=== PATIENT | female | born 1995 | race Caucasian/White ===

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

== ENCOUNTER → 2017-01-01 | Outpatient (CLI) | payer OTHER ==
[~2017-01-01] MED LIST changes: +ESCI10TA17 PO; -FERR27TA5 PO; +HYDR25CA PO; +IBUP-1050 PO
[2017-01-01 16:53] LABS: URINE APPEARANCE CLEAR (CLEAR); URINE BILIRUBIN NEG (NEG); URINE COLOR YELLOW; URINE NITRITE NEG (NEG); URINE SPECIFIC GRAVITY 1.013 (1.000-1.030); UROBILINOGEN NEG (NEG)
[2017-01-01 16:56] LABS: MANUAL MICROSCOPIC REQUIRED? NO; REVIEW REQ? NO
== END | disposition home or self-care (01) ==
LOC: C.LABBFT 17:48
PROVIDERS: ATTEND Physician Assistant Medical
DX: R39.15 Urgency of urination (principal)

== ENCOUNTER 2017-02-19 23:27 | Emergency (ER) | payer OTHER ==
[~2017-02-19] VITALS: Ht 154.9 cm; Wt 86.6 kg
[2017-02-19 23:27] VITALS: TEMP 36.9; Ht 154.9 cm; Wt 86.6 kg
[~2017-02-19 23:27] MED LIST changes: -ESCI10TA17 PO; -HYDR25CA PO; -IBUP-1050 PO
[2017-02-19] MEDS ORDERED: IBUP-1050 PO (23:59)
[2017-02-19] MEDS ORDERED: HYDR25CA PO (23:59)
[2017-02-20 00:03] LABS: URINE APPEARANCE CLEAR (CLEAR); URINE BILIRUBIN NEG (NEG); URINE COLOR YELLOW; URINE NITRITE NEG (NEG); URINE PH 7.5 (4.5-7.5); URINE SPECIFIC GRAVITY 1.015 (1.000-1.030); UROBILINOGEN NEG (NEG); ZZUR CULT IF INDIC CLEAN CATCH NO
[2017-02-20 00:09] LABS: MANUAL MICROSCOPIC REQUIRED? NO; REVIEW REQ? NO
[2017-02-20] MEDS ORDERED: KETOROLAC TROMETHAMINE 30 MG/ML VIAL IV STA (00:10)
[2017-02-20 00:15] LABS: PREG INTERNAL NEGATIVE QC NEG CLEAR BACKGROUND; PREG INTERNAL POSITIVE QC POS CONTROL LINE
[2017-02-20] MEDS ORDERED: SODIUM CHLORIDE 0.9% 1000ML 1,000 ML IV ONE (00:15)
[2017-02-20 00:28] LABS: BASO % 0.4 %; BASO ABS # 0.03 K/uL (0-0.2); COMPLETE YES; HEMATOCRIT 37.3 % (37-47); IG% 0.4 %; LYMPH % 30.3 %; LYMPH ABS # 2.25 K/uL (1.2-3.4); MEAN CORPUSCULAR HGB CONC 33.8 g/dl (32-36); MEAN PLATELET VOLUME 11.2 fL (7.4-10.4); MONO % 7.8 %; NEUT % 54.1 %; PLATELET COUNT 237 K/uL (130-400); RED BLOOD COUNT 4.66 M/uL (4.2-5.4); WHITE BLOOD COUNT 7.43 K/uL (4.8-10.8)
[2017-02-20] MEDS ORDERED: OPTIRAY 320 IV PRN (00:30)
[2017-02-20 00:46] LABS: CALCIUM 9.1 mg/dl (8.5-10.1); CREATININE 0.72 mg/dl (0.60-1.20)
[2017-02-20 00:49] LABS: ALB/GLOB RATIO 0.9 (0.9-2)
[2017-02-20 03:56] VITALS: BP 103/60; PULSE 89; O2SAT 99
--- NOTE | 2017-02-20 04:57 | EMERGENCY ROOM VISIT NOTE ---
History First contact with patient: 23:34 Chief Complaint: ABDOMINAL PAIN Stated Complaint: SEVERE ABD PAIN,5 MONTHS Nursing Triage Summary: Pt reports she is having UTI like symptoms and lower abdominal pain. Gave 5mo ago and is also reporting hemorroids and difficulty going to the bathroom. Hx of leukemia and states she "gets panic attacks at the hospital" due to her experiences. History of Present Illness The patient is a 21 year old female who presents to the Emergency Room with complaints of lower abdominal pain and dysuria symptoms off and on for the past several months. She states that her discomfort tonight is rated a 7/10. She does have frequency. She denies chance of as she just gave 5 months ago and has yet to have a menses. The patient has not had fever or chills. No back or flank pain. Her symptoms appear to be isolated to the lower abdomen. She is generally using the bathroom is normal otherwise, but does have a hemorrhoid that does cause her pain from time to time. Review of Systems More than 10 systems were reviewed and otherwise negative with the exception of history of present illness. Past Medical/Surgical History Medical Problems: (1) Abdominal pain (2) Allergic reaction (3) Constipation (4) GERD (gastroesophageal reflux disease) (5) Leukemia, Unspecified, In Remission (6) Ovarian cyst (7) Spontaneous onset of labor (8) Symptoms of urinary tract infection (9) Unspecified Asthma, Uncomplicated (10) Upper respiratory tract infection (11) Urinary tract infection Family History Patient reports no known family medical history. Social History Smoking Status: Former Smoker Marital Status: single Housing Status: lives with family Occupation Status: student Current/Historical Medications Scheduled PRN Hydroxyzine Pamoate (Vistaril), 1 CAP PO TID PRN for Anxiety Ibuprofen (Advil), 400 MG PO Q4H PRN for Pain or Fever Allergies Coded Allergies: Vancomycin (Verified Allergy, Severe, RED MAN SYNDROME, 12/15/16) Physical Exam Vital Signs Date Time Temp Pulse Resp B/P (MAP) Pulse Ox O2 Delivery O2 Flow Rate FiO2 02/20/17 03:56 89 17 103/60 99 02/20/17 03:15 87 17 107/83 98 Room Air 02/20/17 01:10 101 18 131/88 95 Room Air 02/19/17 23:27 36.9 105 18 133/83 97 Room Air Pain Rating (0-10): 2.0 Physical Exam VITALS: Vitals are noted on the nurse's note and reviewed by myself. Vital signs stable. GENERAL: Well-developed, well-nourished, white female, who is in no acute distress and resting comfortably. Patient is cooperative with the examination. HEAD: Normocephalic atraumatic. HEART: Regular rate and rhythm without murmurs gallops or rubs. LUNGS: Clear to auscultation bilaterally without wheezes, rales or rhonchi. No retractions or accessory muscle use. ABDOMEN: Positive normal bowel sounds x 4. Soft with suprapubic tenderness on palpation. No rebound or guarding. No CVA tenderness. MUSCULOSKELETAL: No muscle atrophy, erythema, or edema noted. Full range of motion without joint tenderness in all extremities. Medical Decision & Procedures ER Provider Diagnostic Interpretation: Preliminary Findings Only See Final Report For Complete Findings CT ABDOMEN & PELVIS: Compared to pelvic ultrasound 05/05/2015 No bowel obstruction. Unremarkable appendix. No CT evidence of acute cholecystitis or acute pancreatitis. No urinary obstruction. The ovaries are not abnormally enlarged. No free fluid. No free air. Laboratory Results 02/20/17 00:15 Red Blood Count 4.66, Mean Corpuscular Volume 80.0, Mean Corpuscular Hemoglobin 27.0, Mean Corpuscular Hemoglobin Concent 33.8, Mean Platelet Volume 11.2, Neutrophils (%) (Auto) 54.1, Lymphocytes (%) (Auto) 30.3, Monocytes (%) (Auto) 7.8, Eosinophils (%) (Auto) 7.0, Basophils (%) (Auto) 0.4, Neutrophils # (Auto) 4.02, Lymphocytes # (Auto) 2.25, Monocytes # (Auto) 0.58, Eosinophils # (Auto) 0.52, Basophils # (Auto) 0.03 02/20/17 00:15 Test 02/19/17 23:40 02/20/17 00:15 Urine Color YELLOW Urine Appearance CLEAR (CLEAR) Urine pH 7.5 (4.5-7.5) Urine Specific [place] 1.015 (1.000-1.030) Urine Protein NEG (NEG) Urine Glucose (UA) NEG (NEG) Urine Ketones NEG (NEG) Urine Occult Blood NEG (NEG) Urine Nitrite NEG (NEG) Urine Bilirubin NEG (NEG) Urine Urobilinogen NEG (NEG) Urine Leukocyte Esterase NEG (NEG) Urine Test NEG (NEG) White Blood Count 7.43 K/uL (4.8-10.8) Red Blood Count 4.66 M/uL (4.2-5.4) Hemoglobin 12.6 g/dL (12.0-16.0) Hematocrit 37.3 % (37-47) Mean Corpuscular Volume 80.0 fL (80-100) Mean Corpuscular Hemoglobin 27.0 pg (25-34) Mean Corpuscular Hemoglobin Concent 33.8 g/dl (32-36) Platelet Count 237 K/uL (130-400) Mean Platelet Volume 11.2 fL (7.4-10.4) Neutrophils (%) (Auto) 54.1 % Lymphocytes (%) (Auto) 30.3 % Monocytes (%) (Auto) 7.8 % Eosinophils (%) (Auto) 7.0 % Basophils (%) (Auto) 0.4 % Neutrophils # (Auto) 4.02 K/uL (1.4-6.5) Lymphocytes # (Auto) 2.25 K/uL (1.2-3.4) Monocytes # (Auto) 0.58 K/uL (0.11-0.59) Eosinophils # (Auto) 0.52 K/uL (0-0.5) Basophils # (Auto) 0.03 K/uL (0-0.2) RDW Standard Deviation 43.0 fL (36.4-46.3) RDW Coefficient of Variation 14.8 % (11.5-14.5) Immature Granulocyte % (Auto) 0.4 % Immature Granulocyte # (Auto) 0.03 K/uL (0.00-0.02) Anion Gap 5.0 mmol/L (3-11) Est Creatinine Clear Calc Drug Dose 125.6 ml/min Estimated GFR () 140.7 Estimated GFR (Non- 121.4 BUN/Creatinine Ratio 11.0 (10-20) Calcium Level 9.1 mg/dl (8.5-10.1) Total Bilirubin 0.1 mg/dl (0.2-1) Aspartate Amino Transf (AST/SGOT) 19 U/L (15-37) Alanine Aminotransferase (ALT/SGPT) 18 U/L (12-78) Alkaline Phosphatase 76 U/L (45-117) Total Protein 6.9 gm/dl (6.4-8.2) Albumin 3.2 gm/dl (3.4-5.0) Globulin 3.7 gm/dl (2.5-4.0) Albumin/Globulin Ratio 0.9 (0.9-2) Lipase 111 U/L (73-393) Medications Administered Medications (Trade) Dose Ordered Sig/Jose Route Start Time Stop Time Status Last Admin Dose Admin Sodium Chloride 1,000 ml @ 999 mls/hr Q1H1M ONCE IV 02/20/17 00:15 02/20/17 01:15 DC 02/20/17 00:27 999 MLS/HR ED Course Physical exam and history were performed. Nursing notes and EMR were reviewed. Patient appears to have abdominal pain off and on for the past 2 months. She does have some suprapubic abdominal tenderness on palpation is not complaining of any vaginal irritation, drainage, or discharge. IV access was established and labs are obtained. The patient was hydrated and medicated as above. CT scan was ordered after a urine was collected and did not show evidence of infection. Patient's blood work is as above and was reviewed. She does not have a significantly elevated white blood cell count, gross anemia, bandemia, or significant electrolyte imbalance. Lipase and transaminases are nondiagnostic. The patient CT scan is without significant acute findings. I discussed options of care with the patient including pelvic examination, but this was deferred by the patient. Overall the patient does not appear to have an acute surgical abdomen or peritoneal symptoms. She has been having some chronic abdominal pain after the of her child, and this certainly could be an GIS MANAGER etiology. I recommend the patient follow with her GIS MANAGER for further care and management. She may otherwise use [id number] analgesics and was invited back to the ER with any new, worsening, or concerning symptoms. She voiced understanding and rated her discomfort a 2/10 at the time of departure. The chart was completed utilizing [employer] Speech Voice Recognition Software. Grammatical errors, random word insertions, pronoun errors, and incomplete sentences are an occasional consequence of this system due to software limitations, ambient noise, and hardware issues. Any formal questions or concerns about the content, text, or information contained within the body of this dictation should be directly addressed to the provider for clarification. . Medical Decision Differential diagnosis: Etiologies such as appendicitis, diverticulitis, PUD, biliary pathology, UTI, pancreatitis, obstruction, mesenteric ischemia, aortic pathology, infections, inflammatory bowel disease, renal colic, as well as others were entertained. Impression Primary Impression: Abdominal pain Departure Information Dispostion Home / Self-Care Condition GOOD Forms HOME CARE DOCUMENTATION FORM, IMPORTANT VISIT INFORMATION Patient Instructions My [facility] Additional Instructions You were seen and evaluated today on an emergency basis only. This is not a substitute for, or an effort to provide, complete comprehensive medical care. It is not possible to recognize and treat all injuries or illnesses in a single emergency department visit. For this reason it is recommended that you followup with your primary care physician and GIS MANAGER next week for ongoing care and evaluation. For baseline pain relief you may alternate ibuprofen and acetaminophen every 4 hours for pain control. Take 600 mg ibuprofen (Advil) and then 4 hours later take 1000 mg acetaminophen (Tylenol). Do not take more than 3000 mg acetaminophen in a single day. Drink plenty of fluids and remain well hydrated. You are welcome to return to the emergency department anytime with new, worsening, or concerning symptoms. Problem Qualifiers Primary Impression: Abdominal pain Abdominal location: lower abdomen, unspecified Qualified Codes: R10.30 - Lower abdominal pain, unspecified
--- NOTE | 2017-02-20 06:49 | DIAGNOSTIC IMAGING REPORT ---
CT ABD/PELVIS ORAL CONT ONLY CT DOSE: 656.89 mGy.cm CLINICAL HISTORY: Severe abdominal pain. 5 months . TECHNIQUE: Axial images of the abdomen and pelvis were obtained without IV contrast. Oral contrast was administered. COMPARISON STUDY: KUB December 15, 2016. FINDINGS: No renal, ureteral or bladder calculi are present. There is no hydronephrosis or hydroureter. Evaluation of the remainder of the abdomen and pelvis is suboptimal on this unenhanced exam. There is fatty infiltration of the liver. The spleen, adrenal glands and pancreas are normal. There is no biliary or pancreatic ductal dilatation. The appendix is normal. There is no evidence for a bowel obstruction. There is no abscess. There is no peripancreatic or pericholecystic infiltration. No pneumatosis, free air or portal venous gas is present. IMPRESSION: 1. No urinary calculi or hydronephrosis. 2. Fatty liver. 3. Normal appendix. 4. No acute process within the abdomen or pelvis on unenhanced exam. Electronically signed by: Champ Jones M.D. 02/20/2017 6:47 AM Dictated Date/Time: 02/20/2017 6:43 AM
== END 2017-02-20 03:56 | disposition home or self-care (01) ==
LOC: C.EDB 23:28
DX: R10.30 Lower abdominal pain, unspecified (principal); C95.91 Leukemia, unspecified, in remission; K21.9 Gastro-esophageal reflux disease without esophagitis; Z87.891 Personal history of nicotine dependence

== ENCOUNTER → 2017-02-19 | Outpatient (CLI) | payer OTHER ==
[2017-02-19 17:08] LABS: URINE APPEARANCE CLEAR (CLEAR); URINE BILIRUBIN NEG (NEG); URINE COLOR YELLOW; URINE NITRITE NEG (NEG); URINE SPECIFIC GRAVITY 1.018 (1.000-1.030); UROBILINOGEN NEG (NEG)
[2017-02-19 17:17] LABS: MANUAL MICROSCOPIC REQUIRED? NO; REVIEW REQ? NO
== END | disposition home or self-care (01) ==
LOC: C.LABBFT 12:04
PROVIDERS: ATTEND Physician Assistant Medical
DX: R39.9 Unspecified symptoms and signs involving the genitourinary system (principal); J02.9 Acute pharyngitis, unspecified

== ENCOUNTER 2017-04-01 03:25 | Emergency (ER) | payer OTHER ==
[~2017-04-01] VITALS: Ht 154.9 cm; Wt 85.9 kg
[~2017-04-01 03:25] MED LIST changes: +HYDR25CA PO; +IBUP-1050 PO; -PREN0.12 PO
[2017-04-01 03:33] VITALS: TEMP 36.9; Ht 154.9 cm; Wt 85.9 kg
[2017-04-01] MEDS ORDERED: hydrOXYzine HCL 25 MG TAB PO STA (04:16)
[2017-04-01] MEDS ORDERED: ESCI10TA17 PO (04:29)
[2017-04-01 04:35] LABS: BASO % 0.4 %; BASO ABS # 0.03 K/uL (0-0.2); COMPLETE YES; EOS % 2.7 %; HEMATOCRIT 38.9 % (37-47); IG% 0.3 %; LYMPH % 28.9 %; LYMPH ABS # 2.17 K/uL (1.2-3.4); MEAN CELL VOLUME 80.2 fL (80-100); MEAN CORPUSCULAR HEMOGLOBIN 26.2 pg (25-34); MEAN CORPUSCULAR HGB CONC 32.6 g/dl (32-36); MEAN PLATELET VOLUME 11.2 fL (7.4-10.4); MONO % 9.6 %; NEUT % 58.1 %; PLATELET COUNT 269 K/uL (130-400); RED BLOOD COUNT 4.85 M/uL (4.2-5.4); WHITE BLOOD COUNT 7.52 K/uL (4.8-10.8)
[2017-04-01 04:58] LABS: BLOOD UREA NITROGEN 9 mg/dl (7-18); BUN/CREATININE RATIO 12.1 (10-20); CALCIUM 8.8 mg/dl (8.5-10.1); CARBON DIOXIDE 28 mmol/L (21-32); CHLORIDE 108 mmol/L (98-107); CREATININE 0.77 mg/dl (0.60-1.20); GLUCOSE 104 mg/dl (70-99); MAGNESIUM 2.1 mg/dl (1.8-2.4); POTASSIUM 3.4 mmol/L (3.5-5.1); SODIUM 141 mmol/L (136-145)
[2017-04-01 05:08] LABS: ALKALINE PHOSPHATASE 95 U/L (45-117); ALT/SGPT 22 U/L (12-78); AST/SGOT 16 U/L (15-37)
[2017-04-01 05:28] LABS: URINE APPEARANCE CLEAR (CLEAR); URINE BILIRUBIN NEG (NEG); URINE COLOR YELLOW; URINE NITRITE NEG (NEG); URINE PH 5.5 (4.5-7.5); URINE SPECIFIC GRAVITY 1.024 (1.000-1.030); UROBILINOGEN NEG (NEG); ZZUR CULT IF INDIC CLEAN CATCH NO
[2017-04-01 05:40] LABS: MANUAL MICROSCOPIC REQUIRED? NO; REVIEW REQ? NO
--- NOTE | 2017-04-01 06:11 | EMERGENCY ROOM VISIT NOTE ---
History Report prepared by Francisco Javier: Angie Flower Under the Supervision of: Dr. Whitney Richards M.D. First contact with patient: 03:38 Chief Complaint: ANXIETY Stated Complaint: CHEST AND SHOULDER PAIN History of Present Illness The patient is a 21 year old female who presents to the Emergency Room with complaints of persistent chest pain starting 2 hours ago. She presents to the ED by EMS. At first, her heart was racing and she had a sharp substernal chest pain with SOB. Her symptoms began suddenly. She rates her discomfort as a 4/10 at worst. She has a history of anxiety and PTSD. Her symptoms felt like a panic attack, but she usually does not have pain. She states that her chest pain started to improve when she began speaking with the EMT. She believes that her pain was due to anxiety. She denies any recent stressors. She also notes that she has had an intermittent headache for 2 weeks, tonsil stones, cough for 1 month, and shoulder pain for 1 week. She attributes her shoulder pain to lifting her 6 month old daughter. She denies any pain with deep breaths or vomiting. She denies any SI or HI. She is on Vistaril. She started Lexapro 1 week ago which she already feels is benefitting her. She denies any tobacco, alcohol, or drug use. She is not on control. Source of History: patient Onset: 2 hours ago Position: chest Symptom Intensity: 4/10 at worst Quality: sharp Timing: other (persistent) Associated Symptoms: + SOB, No vomiting Note: Pt reports heart racing. Pt denies pain with deep breaths. Review of Systems See HPI for pertinent positives & negatives. A total of 10 systems reviewed and were otherwise negative. Past Medical & Surgical Medical Problems: (1) Abdominal pain (2) Allergic reaction (3) Constipation (4) GERD (gastroesophageal reflux disease) (5) Leukemia, Unspecified, In Remission (6) Ovarian cyst (7) Spontaneous onset of labor (8) Symptoms of urinary tract infection (9) Unspecified Asthma, Uncomplicated (10) Upper respiratory tract infection (11) Urinary tract infection Family History Heart disease Social History Smoking Status: Never Smoker Marital Status: single Housing Status: lives with family Occupation Status: student Current/Historical Medications Scheduled Escitalopram (Lexapro), 10 MG PO DAILY Scheduled PRN Hydroxyzine Pamoate (Vistaril), 25 MG PO TID PRN for Anxiety Allergies Coded Allergies: Vancomycin (Verified Allergy, Severe, RED MAN SYNDROME, 12/15/16) Physical Exam Vital Signs Date Time Temp Pulse Resp B/P (MAP) Pulse Ox O2 Delivery O2 Flow Rate FiO2 04/01/17 06:17 76 18 129/81 99 04/01/17 05:25 82 16 04/01/17 04:55 96 14 04/01/17 04:25 90 26 137/90 98 Room Air 04/01/17 03:55 87 21 98 Room Air 04/01/17 03:50 107 04/01/17 03:50 107 04/01/17 03:33 36.9 86 16 147/78 98 Room Air 04/01/17 03:30 147/78 Physical Exam Vital signs reviewed. General: Well-appearing female, in no significant distress. HEENT: No scleral icterus, PERRLA, neck supple. Atraumatic. Cardiovascular: Regular rate and rhythm, no extra sounds. Pulmonary: Clear to auscultation bilaterally, normal work of breathing. Abdomen: Soft, nontender, nondistended, positive bowel sounds. Musculoskeletal: Atraumatic, no peripheral edema. Neurologic: Patient awake alert and oriented x 3, full strength in all 4 extremities. Cranial nerves 2 through 12 grossly intact. Skin: Warm, dry, no rash Medical Decision & Procedures Laboratory Results 04/01/17 04:26 Red Blood Count 4.85, Mean Corpuscular Volume 80.2, Mean Corpuscular Hemoglobin 26.2, Mean Corpuscular Hemoglobin Concent 32.6, Mean Platelet Volume 11.2, Neutrophils (%) (Auto) 58.1, Lymphocytes (%) (Auto) 28.9, Monocytes (%) (Auto) 9.6, Eosinophils (%) (Auto) 2.7, Basophils (%) (Auto) 0.4, Neutrophils # (Auto) 4.38, Lymphocytes # (Auto) 2.17, Monocytes # (Auto) 0.72, Eosinophils # (Auto) 0.20, Basophils # (Auto) 0.03 04/01/17 04:26 Test 04/01/17 04:15 04/01/17 04:26 Urine Color YELLOW Urine Appearance CLEAR (CLEAR) Urine pH 5.5 (4.5-7.5) Urine Specific [place] 1.024 (1.000-1.030) Urine Protein NEG (NEG) Urine Glucose (UA) NEG (NEG) Urine Ketones NEG (NEG) Urine Occult Blood NEG (NEG) Urine Nitrite NEG (NEG) Urine Bilirubin NEG (NEG) Urine Urobilinogen NEG (NEG) Urine Leukocyte Esterase NEG (NEG) Urine Test NEG (NEG) White Blood Count 7.52 K/uL (4.8-10.8) Red Blood Count 4.85 M/uL (4.2-5.4) Hemoglobin 12.7 g/dL (12.0-16.0) Hematocrit 38.9 % (37-47) Mean Corpuscular Volume 80.2 fL (80-100) Mean Corpuscular Hemoglobin 26.2 pg (25-34) Mean Corpuscular Hemoglobin Concent 32.6 g/dl (32-36) Platelet Count 269 K/uL (130-400) Mean Platelet Volume 11.2 fL (7.4-10.4) Neutrophils (%) (Auto) 58.1 % Lymphocytes (%) (Auto) 28.9 % Monocytes (%) (Auto) 9.6 % Eosinophils (%) (Auto) 2.7 % Basophils (%) (Auto) 0.4 % Neutrophils # (Auto) 4.38 K/uL (1.4-6.5) Lymphocytes # (Auto) 2.17 K/uL (1.2-3.4) Monocytes # (Auto) 0.72 K/uL (0.11-0.59) Eosinophils # (Auto) 0.20 K/uL (0-0.5) Basophils # (Auto) 0.03 K/uL (0-0.2) RDW Standard Deviation 39.8 fL (36.4-46.3) RDW Coefficient of Variation 13.7 % (11.5-14.5) Immature Granulocyte % (Auto) 0.3 % Immature Granulocyte # (Auto) 0.02 K/uL (0.00-0.02) D-Dimer 290 ug/L FEU (0-500) Anion Gap 5.0 mmol/L (3-11) Est Creatinine Clear Calc Drug Dose 116.9 ml/min Estimated GFR () 129.7 Estimated GFR (Non- 111.9 BUN/Creatinine Ratio 12.1 (10-20) Calcium Level 8.8 mg/dl (8.5-10.1) Magnesium Level 2.1 mg/dl (1.8-2.4) Total Bilirubin 0.2 mg/dl (0.2-1) Direct Bilirubin < 0.1 mg/dl (0-0.2) Aspartate Amino Transf (AST/SGOT) 16 U/L (15-37) Alanine Aminotransferase (ALT/SGPT) 22 U/L (12-78) Alkaline Phosphatase 95 U/L (45-117) Total Protein 7.4 gm/dl (6.4-8.2) Albumin 3.6 gm/dl (3.4-5.0) Thyroid Stimulating Hormone (TSH) 2.840 uIu/ml (0.300-4.500) Laboratory results per my review. Medications Administered Medications (Trade) Dose Ordered Sig/Jose Route Start Time Stop Time Status Last Admin Dose Admin Hydroxyzine HCl (Vistaril Tab) 25 mg NOW STAT PO 04/01/17 04:16 04/01/17 04:21 DC 04/01/17 04:31 25 MG ECG Indication: chest pain Rate (beats per minute): 90 Rhythm: normal sinus Findings: no acute ischemic change, prolonged QT (QTc 489), no ectopy ED Course 0336: The patient was evaluated by the student at this time. We discussed findings, differentials, and treatment plan. 0405: Past medical records reviewed. The patient was evaluated in room B12B. A complete history and physical examination was performed. 0416: Vistaril Tab 25 mg PO. 0556: Upon reevaluation, the patient appeared to have improvement of her symptoms. I discussed findings with her. She verbalized agreement of the treatment plan. She was discharged home. Medical Decision Differential diagnosis: Etiologies such as mood disorder, infection, hypoglycemia, electrolyte abnormalities, cardiac sources, intracerebral event, toxicologic, neurologic, as well as others were entertained. This patient was evaluated and appeared to be in no significant distress. IV access was obtained and laboratory work was drawn. The patient was placed on the night monitor and found to be in a normal sinus rhythm. Patient was given Vistaril 25 mg per her request. Her evaluation is fairly unrevealing. D- dimer is normal. EKG reveals a normal sinus rhythm at a mildly prolonged QT interval. She was informed of the findings. She was discharged follow-up with her PCP. She will return to the ER for worsening of symptoms or any medical concerns. Medication Reconcilliation Current Medication List: was personally reviewed by me Blood Pressure Screening Patient's blood pressure: Elevated blood pressure Blood pressure disposition: Elevated BP felt to be situational Impression Primary Impression: Chest pain, non-cardiac Additional Impression: Acute anxiety Scribe Attestation The scribe's documentation has been prepared under my direction and personally reviewed by me in its entirety. I confirm that the note above accurately reflects all work, treatment, procedures, and medical decision making performed by me. Departure Information Dispostion Home / Self-Care Referrals Margy Jones M.D. (PCP) Patient Instructions My [facility] Additional Instructions Diagnosis: Acute anxiety, noncardiac chest pain Please drink plenty of clear fluids. Take your Vistaril 25 mg every 8 hours as needed for anxiety. Follow-up with your physician this week for reevaluation. Return to the emergency department for worsening of symptoms or any medical concerns. Problem Qualifiers
[2017-04-01 06:17] VITALS: BP 129/81; PULSE 76; O2SAT 99
== END 2017-04-01 06:17 | disposition home or self-care (01) ==
LOC: EDBD 03:25 → C.EDB 03:26
DX: R07.89 Other chest pain (principal); F41.9 Anxiety disorder, unspecified; M25.519 Pain in unspecified shoulder; C95.91 Leukemia, unspecified, in remission

== ENCOUNTER → 2017-06-01 | Outpatient (CLI) | payer OTHER ==
[~2017-06-01] MED LIST changes: +ESCI10TA17 PO; -IBUP-1050 PO
[2017-06-01 15:02] LABS: PREG INTERNAL NEGATIVE QC NEG CLEAR BACKGROUND; PREG INTERNAL POSITIVE QC POS CONTROL LINE
== END | disposition home or self-care (01) ==
LOC: C.LAB1850 12:55
PROVIDERS: ATTEND Physician Assistant
DX: N91.2 Amenorrhea, unspecified (principal)

== ENCOUNTER → 2017-08-03 | Outpatient (CLI) | payer OTHER ==
[~2017-08-03] MED LIST changes: +GADAVIST IV PRN
--- NOTE | 2017-08-03 18:48 | DIAGNOSTIC IMAGING REPORT ---
MRI OF THE BRAIN COMBO CLINICAL HISTORY: Headache. Blurry vision. COMPARISON STUDY: No priors. TECHNIQUE: MRI of the brain was performed utilizing various T1 and T2-weighted sequences in the axial, sagittal, and coronal planes. Contrast-enhanced sequences were acquired following the administration of 11 cc of Gadavist. The examination is modestly degraded by motion artifact. FINDINGS: Brain parenchyma: The brain parenchyma is normal in appearance. There is no hemorrhage or mass effect. There is no restricted diffusion to suggest acute ischemia. No enhancing mass lesion is identified on the postcontrast images. Smith-white matter differentiation is preserved. No extra-axial fluid collection is seen. The cerebellar tonsils are normal in configuration. Ventricles, sulci, and cisterns: Normal in configuration. Pituitary and sella: Unremarkable. Intracranial vasculature: Normal flow voids are maintained at the skull base. Orbits: The bony orbits are grossly intact. Orbital contents are normal in appearance. Sinuses and mastoids: There is susceptibility artifact in the region of the right maxillary antrum. The remaining paranasal sinuses are clear. The mastoid air cells are well pneumatized. Calvarium: Unremarkable. Cervical cord: Partially visualized cervical spinal cord is normal in morphology and signal intensity. IMPRESSION: No acute intracranial abnormality. Electronically signed by: Darrion Lane M.D. 08/03/2017 6:46 PM Dictated Date/Time: 08/03/2017 6:44 PM
== END | disposition home or self-care (01) ==
LOC: C.MRI 16:51
PROVIDERS: ATTEND Physician Assistant Medical
DX: R51 Headache (principal)

== ENCOUNTER → 2017-08-13 | Outpatient (CLI) | payer OTHER ==
[~2017-08-13] MED LIST changes: +CITA10TA8 PO; -GADAVIST IV PRN; +RANI150T3 PO
== END | disposition home or self-care (01) ==
LOC: C.LABBFT 11:06
PROVIDERS: ATTEND Internal Medicine
DX: R39.9 Unspecified symptoms and signs involving the genitourinary system (principal)

== ENCOUNTER 2017-09-06 02:01 | Emergency (ER) | payer OTHER ==
[~2017-09-06] VITALS: Ht 157.5 cm; Wt 85.4 kg
[~2017-09-06 02:01] MED LIST changes: -CITA10TA8 PO; -RANI150T3 PO
[2017-09-06 02:05] VITALS: TEMP 36.5; Ht 157.5 cm; Wt 85.4 kg
[2017-09-06] MEDS ORDERED: CITA10TA8 PO (02:36)
[2017-09-06] MEDS ORDERED: RANI150T3 PO (02:36)
[2017-09-06] MEDS ORDERED: GI COCKTAIL PO STA (02:48)
[2017-09-06] MEDS ORDERED: LIDOCAINE HCL 2% VISC SOLN 20 ML UDC ONE (02:58)
[2017-09-06] MEDS ORDERED: ALUMINUM/MAGNESIUM SUSP 30 ML UDC ONE (02:58)
[2017-09-06] MEDS ORDERED: GUAIFENESIN 600 MG TABCR PO STA (03:15)
--- NOTE | 2017-09-06 03:15 | EMERGENCY ROOM VISIT NOTE ---
History Report prepared by Francisco Javier: Amaya Wood Under the Supervision of: Dr. Gina Singh D.O. First contact with patient: 02:09 Chief Complaint: ILLNESS Stated Complaint: EARLIER CHEST PAIN,HARD TO COUGH UP MUCUS,NAUSEA History of Present Illness The patient is a 21 year old female who presents to the Emergency Room with complaints of generalized illness beginning a couple days ago. The patient states she has mucus in her chest that she is unable to cough up. She also notes chills and a runny nose with yellow mucus. She reports an episode of chest pain occurring a couple hours ago which lasted for an hour. The patient has a history of acid reflux. The patient states she is having a hard time eating because her reflux has been "so bad" over the past couple weeks. She notes the acid that comes up when she eats is dark in color. The patient states she gets mild abdominal pain, heart burn and a sour taste in her mouth with her reflux. The patient took Prilosec prior to her a year ago which helped her symptoms. She denies taking Prilosec more recently. She notes some sick contact. Pt denies headache, change in vision, fevers, shortness of breath , nausea, vomiting, diarrhea, pain with urination, and melena. Source of History: patient Onset: a couple days ago Position: other (generalized) Quality: other (illness) Associated Symptoms: + chills, + cough, + chest pain, No fevers, No SOB, No nausea, No diarrhea Review of Systems See HPI for pertinent positives & negatives. A total of 10 systems reviewed and were otherwise negative. Past Medical & Surgical Medical Problems: (1) Abdominal pain (2) Allergic reaction (3) Constipation (4) GERD (gastroesophageal reflux disease) (5) Leukemia, Unspecified, In Remission (6) Ovarian cyst (7) Spontaneous onset of labor (8) Symptoms of urinary tract infection (9) Unspecified Asthma, Uncomplicated (10) Upper respiratory tract infection (11) Urinary tract infection Family History Heart disease Social History Smoking Status: Never Smoker Marital Status: single Housing Status: lives with family Occupation Status: student Current/Historical Medications Scheduled Citalopram Hydrobromide (Celexa), 10 MG PO DAILY Scheduled PRN Hydroxyzine Pamoate (Vistaril), 25 MG PO TID PRN for Anxiety Ranitidine Hcl (Zantac), 150 MG PO DAILY PRN for Heartburn Allergies Coded Allergies: Vancomycin (Verified Allergy, Severe, RED MAN SYNDROME, 09/06/17) Physical Exam Vital Signs Date Time Temp Pulse Resp B/P (MAP) Pulse Ox O2 Delivery O2 Flow Rate FiO2 09/06/17 04:38 75 18 139/85 96 Room Air 09/06/17 02:05 36.5 91 18 140/83 96 Room Air Physical Exam GENERAL: alert, well appearing, well nourished, no distress, non-toxic EYE EXAM: normal conjunctiva, PERRL and EOM's grossly intact OROPHARYNX: no exudate, no erythema, lips, buccal mucosa, and tongue normal and mucous membranes are moist NECK: supple, no nuchal rigidity, no adenopathy, non-tender LUNGS: Clear to auscultation. Normal chest wall mechanics HEART: no murmurs, S1 normal and S2 normal ABDOMEN: abdomen soft, non-tender, normo-active bowel sounds, no masses, no rebound or guarding. BACK: Back is symmetrical on inspection and there is no deformity, no midline tenderness, no CVA tenderness. Chest wall nontender to palpation. SKIN: no rashes and no bruising UPPER EXTREMITIES: upper extremities are grossly normal. LOWER EXTREMITIES: No pitting edema. NEURO EXAM: Normal sensorium, cranial nerves II-XII grossly intact, normal speech, no gross weakness of arms, no gross weakness of legs. Medical Decision & Procedures ER Provider Diagnostic Interpretation: Radiology results have been interpreted by me. Chest X-ray 2 view: no cardiomegaly no effusions, no wide mediastinum, no focal infiltrate. Laboratory Results Test 09/06/17 03:32 Bedside Hemoglobin 11.9 g/dl (12.0-16.0) Bedside Hematocrit 35 % (37-47) Bedside Sodium 141 mEq/L (135-144) Bedside Potassium 4.0 mEq/L (3.3-5.0) Bedside Chloride 104 mEq/L (101-112) Bedside Total CO2 26 mEq/l (24-31) Anion Gap 17.0 mmol/L (16-25) Bedside Blood Urea Nitrogen 8 mg/dl (7-18) Bedside Creatinine 0.8 mg/dl Bedside Glucose (other) 101 mg/dl (70-99) Bedside Ionized Calcium (Agatha) 1.18 mmol/l Medications Administered Medications (Trade) Dose Ordered Sig/Jose Route Start Time Stop Time Status Last Admin Dose Admin Miscellaneous Medication (Gi Cocktail) 24 ml NOW STAT PO 09/06/17 02:48 09/06/17 02:49 DC 09/06/17 02:48 24 ML Guaifenesin (Mucinex Contr Rel Tab) 600 mg NOW STAT PO 09/06/17 03:15 09/06/17 03:16 DC 09/06/17 03:31 600 MG ECG Indication: chest pain Rate (beats per minute): 86 Rhythm: sinus rhythm Findings: no acute ischemic change, no ectopy, other (normal axis normal intervals) ED Course 0234: The patient was evaluated in room B9. A complete history and physical exam was performed. 0248: Ordered GI Cocktail 24 ml PO. 0258: Ordered Lidocaine HCl 20 ml .ROUTE, Maalox Susp 30 ml .ROUTE. 0315: Ordered Guaifenesin 600 mg PO. 0322: The patient is feeling better. 0430: Upon reevaluation, the patient is feeling better. I discussed the findings and the treatment plan with the patient. She verbalizes agreement and understanding. The patient was discharged home. Medical Decision Differential diagnosis: Etiologies such as cardiac ischemia, aortic dissection, pulmonary embolism, pneumonia, pneumothorax, musculoskeletal, infections, pericarditis, myocarditis , esophageal rupture, gastrointestinal, as well as others were entertained. Patient likely with worsening reflux symptoms and upper respiratory infection. Encouraged patient to restart acid reducing medication and to avoid acidity in her diet. Patient's labs and imaging reassuring here and patient markedly improved with GI cocktail. No evidence of pneumonia or effusion, doubt bacteremia/sepsis, doubt GI bleed, perforation, bowel obstruction, mesenteric ischemia, ACS, dissection, tamponade. Patient well-appearing here time of discharge, tolerating by mouth, vital signs stable throughout. Medication Reconcilliation Current Medication List: was personally reviewed by me Blood Pressure Screening Patient's blood pressure: Elevated blood pressure Blood pressure disposition: Elevated BP felt to be situational Impression Primary Impression: Chest pain Additional Impressions: URI (upper respiratory infection) GERD (gastroesophageal reflux disease) Scribe Attestation The scribe's documentation has been prepared under my direction and personally reviewed by me in its entirety. I confirm that the note above accurately reflects all work, treatment, procedures, and medical decision making performed by me. Departure Information Dispostion Home / Self-Care Referrals Margy Jones M.D. (PCP) Forms HOME CARE DOCUMENTATION FORM, IMPORTANT VISIT INFORMATION, WORK / SCHOOL INSTRUCTIONS Patient Instructions My [facility] Additional Instructions Please call and follow-up with your family doctor. Please restart the acid reducing medication you were previously on. Please avoid foods high in acid such as alcohol, soda, coffee, tomato based products and citrus fruits. Please drink plenty of water. You may use over the counter cough and cold remedies as needed, take as directed on packaging. If you have any recurrent pain, develop trouble breathing, notice blood in your sputum, have vomiting, notice black or bloody stools, develop fevers/dizziness, or you have any other new or concerning symptoms, please return to the emergency room. Problem Qualifiers Primary Impression: Chest pain Chest pain type: unspecified Qualified Codes: R07.9 - Chest pain, unspecified Additional Impressions: URI (upper respiratory infection) URI type: unspecified URI Qualified Codes: J06.9 - Acute upper respiratory infection, unspecified GERD (gastroesophageal reflux disease) Esophagitis presence: esophagitis presence not specified Qualified Codes: K21.9 - Gastro-esophageal reflux disease without esophagitis
[2017-09-06 04:26] LABS: ISTAT CREATININE 0.8 mg/dl; ISTAT IONIZED CALCIUM 1.18 mmol/l
[2017-09-06 04:38] VITALS: BP 139/85; PULSE 75; O2SAT 96
--- NOTE | 2017-09-06 07:14 | DIAGNOSTIC IMAGING REPORT ---
TWO VIEW CHEST CLINICAL HISTORY: Cough. Atypical chest pain. FINDINGS: PA and lateral chest radiographs are compared to study dated 10/05/2015. The PA view is degraded by patient rotation. The cardiomediastinal silhouette is unremarkable. There are low lung volumes with bibasilar airspace opacities. The upper lobes appear clear. No pleural effusion is identified. There is no pneumothorax. The bony thorax appears intact. IMPRESSION: Low lung volumes with bibasilar airspace opacities. This likely represents atelectasis. Correlate clinically for evidence of developing pneumonia. Electronically signed by: Darrion Lane M.D. 09/06/2017 7:12 AM Dictated Date/Time: 09/06/2017 7:11 AM
== END 2017-09-06 04:41 | disposition home or self-care (01) ==
LOC: C.EDB 02:03
DX: R07.9 Chest pain, unspecified (principal); J06.9 Acute upper respiratory infection, unspecified; K21.9 Gastro-esophageal reflux disease without esophagitis; Z85.6 Personal history of leukemia; J45.909 Unspecified asthma, uncomplicated; Z87.440 Personal history of urinary (tract) infections; Z82.49 Family history of ischemic heart disease and other diseases of the circulatory system; Z79.899 Other long term (current) drug therapy

== ENCOUNTER 2017-10-06 21:50 | Emergency (ER) | payer OTHER ==
[~2017-10-06] VITALS: Ht 157.5 cm; Wt 84.2 kg
[~2017-10-06 21:50] MED LIST changes: +CITA10TA8 PO; -ESCI10TA17 PO; +RANI150T3 PO
[2017-10-06 22:21] VITALS: TEMP 36.3; Ht 157.5 cm; Wt 84.2 kg
[2017-10-06] MEDS ORDERED: SODIUM CHLORIDE 0.9% 1000ML 2,000 ML IV STA (23:16)
--- NOTE | 2017-10-06 23:21 | EMERGENCY ROOM VISIT NOTE ---
History Report prepared by Francisco Javier: Celia Jennings Under the Supervision of: Dr. Gal Ramirez M.D. First contact with patient: 23:14 Chief Complaint: ED VAG BLEEDING Stated Complaint: VAGINAL BLEEDING History of Present Illness The patient is a 21 year old female who presents to the Emergency Room with complaints of constant vaginal bleeding since this morning. She notes that she has been going through a pad every hour due to heavy bleeding. She notes normal cramping abdominal pain. She reports having a harder time urinating, though denies any pain with urination. She reports having a baby one year ago and has had difficulty regulating her menstrual cycles. She notes that she feels weak and lightheaded. She reports that her um nurse had to induce a menstrual cycle in May 2017 and then she did not have a period for two months after. She did have two menstrual cycles last month. She states that her cycles have never been this heavy before. She notes that she has never had irregular menstrual cycles prior to giving . She is not currently taking any control medication. She states that she was on BC some time ago, though she was having side effects and was taken off the medication. She notes chills, though she states that she was recently diagnosed with bronchitis. She was prescribed steroids, though is expected to begin the treatment tomorrow morning. She reports that she has not been checked for influenza. She denies any nausea, vomiting, or chest pain. Source of History: patient Onset: since this morning Position: other (vagina) Quality: other (bleeding) Timing: constant Associated Symptoms: + chills, + abdominal pain (cramping), + urinary symptoms (harder time urinating, no pain with urination), + weakness, No chest pain, No nausea, No vomiting Note: She notes lightheadedness. Review of Systems See HPI for pertinent positives and negatives. A total of ten systems were reviewed and were otherwise negative. Past Medical & Surgical Medical Problems: (1) Abdominal pain (2) Allergic reaction (3) Constipation (4) First trimester (5) GERD (gastroesophageal reflux disease) (6) Left lower quadrant pain (7) Left sided abdominal pain (8) Leukemia, Unspecified, In Remission (9) Ovarian cyst (10) Spontaneous onset of labor (11) Symptoms of urinary tract infection (12) Threatened miscarriage (13) Tooth pain with chewing (14) Unspecified Asthma, Uncomplicated (15) Upper respiratory tract infection (16) Urinary tract infection Family History Heart disease Social History Smoking Status: Never Smoker Smokeless Tobacco Use: No Alcohol Use: none Drug Use: none Marital Status: single Housing Status: lives with family Occupation Status: student Current/Historical Medications Scheduled Citalopram Hydrobromide (Celexa), 20 MG PO DAILY Ethinyl Estradiol/Norethindr (), 1 TAB PO DAILY Prednisone (Prednisone), 30 MG PO UD Scheduled PRN Albuterol Hfa (Ventolin Hfa), 2 PUFFS INH Q6H PRN for SOB/Wheezing Benzonatate (Tessalon Perles), 100 MG PO TID PRN for Cough Hydroxyzine HCl (Hydroxyzine HCl), 25 MG PO q4-6 hrs PRN for Anxiety Ranitidine Hcl (Zantac), 150 MG PO DAILY PRN for Heartburn Trazodone Hcl (Trazodone), 25-50 MG PO HS PRN for Sleep Allergies Coded Allergies: Vancomycin (Verified Allergy, Severe, RED MAN SYNDROME, 10/06/17) Physical Exam Vital Signs Date Time Temp Pulse Resp B/P (MAP) Pulse Ox O2 Delivery O2 Flow Rate FiO2 10/07/17 02:03 84 18 122/70 99 10/07/17 00:35 88 16 136/89 98 Room Air 10/06/17 23:17 104 10/06/17 22:21 36.3 96 18 127/89 99 Room Air Physical Exam GENERAL: Awake, alert, well-appearing, in no distress HENT: Normocephalic, atraumatic. Oropharynx dry mucus membranes. EYES: Normal conjunctiva. Sclera non-icteric. NECK: Supple. No nuchal rigidity. FROM. No JVD. RESPIRATORY: Clear to auscultation. CARDIAC: Regular rate, normal rhythm. Extremities warm and well perfused. Pulses equal. ABDOMEN: Soft, non-distended. No tenderness to palpation. No rebound or guarding. No masses. RECTAL: Deferred. PELVIC: Mild amount of menses without any signs of hemorrhage. No lesions. No CMT or adnexal tenderness. MUSCULOSKELETAL: Chest examination reveals no tenderness. The back is symmetrical on inspection without obvious abnormality. There is no CVA tenderness to palpation. No joint edema. LOWER EXTREMITIES: Calves are equal size bilaterally and non-tender. No edema. No discoloration. NEURO: Normal sensorium. No sensory or motor deficits noted. SKIN: No rash or jaundice noted. Medical Decision & Procedures Laboratory Results 10/06/17 23:31 Red Blood Count 4.83, Mean Corpuscular Volume 78.3, Mean Corpuscular Hemoglobin 26.5, Mean Corpuscular Hemoglobin Concent 33.9, Mean Platelet Volume 11.6, Neutrophils (%) (Auto) 66.8, Lymphocytes (%) (Auto) 22.7, Monocytes (%) (Auto) 7.0, Eosinophils (%) (Auto) 2.9, Basophils (%) (Auto) 0.3, Neutrophils # (Auto) 5.16, Lymphocytes # (Auto) 1.75, Monocytes # (Auto) 0.54, Eosinophils # (Auto) 0.22, Basophils # (Auto) 0.02 10/06/17 23:31 Test 10/06/17 23:31 10/07/17 00:10 10/07/17 00:35 White Blood Count 7.71 K/uL (4.8-10.8) Red Blood Count 4.83 M/uL (4.2-5.4) Hemoglobin 12.8 g/dL (12.0-16.0) Hematocrit 37.8 % (37-47) Mean Corpuscular Volume 78.3 fL (80-100) Mean Corpuscular Hemoglobin 26.5 pg (25-34) Mean Corpuscular Hemoglobin Concent 33.9 g/dl (32-36) Platelet Count 283 K/uL (130-400) Mean Platelet Volume 11.6 fL (7.4-10.4) Neutrophils (%) (Auto) 66.8 % Lymphocytes (%) (Auto) 22.7 % Monocytes (%) (Auto) 7.0 % Eosinophils (%) (Auto) 2.9 % Basophils (%) (Auto) 0.3 % Neutrophils # (Auto) 5.16 K/uL (1.4-6.5) Lymphocytes # (Auto) 1.75 K/uL (1.2-3.4) Monocytes # (Auto) 0.54 K/uL (0.11-0.59) Eosinophils # (Auto) 0.22 K/uL (0-0.5) Basophils # (Auto) 0.02 K/uL (0-0.2) RDW Standard Deviation 40.6 fL (36.4-46.3) RDW Coefficient of Variation 14.3 % (11.5-14.5) Immature Granulocyte % (Auto) 0.3 % Immature Granulocyte # (Auto) 0.02 K/uL (0.00-0.02) Anion Gap 9.0 mmol/L (3-11) Est Creatinine Clear Calc Drug Dose 116.7 ml/min Estimated GFR () 127.7 Estimated GFR (Non- 110.2 BUN/Creatinine Ratio 11.0 (10-20) Calcium Level 8.8 mg/dl (8.5-10.1) Total Bilirubin 0.3 mg/dl (0.2-1) Direct Bilirubin < 0.1 mg/dl (0-0.2) Aspartate Amino Transf (AST/SGOT) 15 U/L (15-37) Alanine Aminotransferase (ALT/SGPT) 15 U/L (12-78) Alkaline Phosphatase 85 U/L (45-117) Total Protein 8.0 gm/dl (6.4-8.2) Albumin 3.6 gm/dl (3.4-5.0) Lipase 109 U/L (73-393) Influenza Type A Antigen Neg for Influ A (NEG) Influenza Type B Antigen Neg for Influ B (NEG) Urine Color ORANGE Urine Appearance CLEAR (CLEAR) Urine pH 6.0 (4.5-7.5) Urine Specific [place] 1.004 (1.000-1.030) Urine Protein TRACE (NEG) Urine Glucose (UA) NEG (NEG) Urine Ketones TRACE (NEG) Urine Occult Blood 3+ (NEG) Urine Nitrite NEG (NEG) Urine Bilirubin NEG (NEG) Urine Urobilinogen NEG (NEG) Urine Leukocyte Esterase MODERATE (NEG) Urine WBC (Auto) 10-30 /hpf (0-5) Urine RBC (Auto) >30 /hpf (0-4) Urine Hyaline Casts (Auto) 1-5 /lpf (0-5) Urine Epithelial Cells (Auto) >30 /lpf (0-5) Urine Bacteria (Auto) NEG (NEG) Urine Renal Epithelial Cells 0-5 /lpf (0-5) Urine Test NEG (NEG) Laboratory results reviewed by me Medications Administered Medications (Trade) Dose Ordered Sig/Jose Route Start Time Stop Time Status Last Admin Dose Admin Sodium Chloride 2,000 ml @ 999 mls/hr Q2H1M STAT IV 10/06/17 23:16 10/07/17 01:16 DC 10/06/17 23:16 999 MLS/HR ED Course 2316: The patient was evaluated in room B12B. A complete history and physical exam was performed. 0138: I reassessed the patient at this time. I performed a pelvic exam. Please see exam note. She is feeling better and resting comfortably. I discussed the results and treatment plan with the patient. I answered all pertaining questions that she had. She expressed understanding and verbalized agreement. The patient will be discharged home. Medical Decision I reviewed the patient's past medical history, medications, and the nursing notes as described above. Differential diagnosis: Etiologies such as ectopic , dysfunction uterine bleeding, bleeding dyscrasia, trauma, infection, as well as others were entertained. The patient is a 21 y/o woman with a pmhx of irregular and heavy menstrual cycles over the past years since the of her child presents to the emergency department with heavy mentstrual bleeding today after beginning her menstrual cycle yesterday per HPI. On arrival the patient is in NAD, AFVSS. Pelvic exam demonstrates mild about of menses but no active hemorrhage. Labs unremarkable including wbc and H/H wnl. UA dirty thus will wait for cx. Patient feeling improved after IVF. Given patient has previously tried OCPs for menstrual cycle regulation without success with defer additional trial of OCPs to patient's high scaler. 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 Findings and plan for follow-up reviewed with patient. Patient agreeable and d/c'd per discharge instructions. Medication Reconcilliation Current Medication List: was personally reviewed by me Blood Pressure Screening Patient's blood pressure: Normal blood pressure Impression Primary Impression: Menometrorrhagia Scribe Attestation The scribe's documentation has been prepared under my direction and personally reviewed by me in its entirety. I confirm that the note above accurately reflects all work, treatment, procedures, and medical decision making performed by me. Departure Information Dispostion Home / Self-Care Referrals Margy Jones M.D. (PCP) Forms HOME CARE DOCUMENTATION FORM, IMPORTANT VISIT INFORMATION, WORK / SCHOOL INSTRUCTIONS Patient Instructions ED Bleeding Menstrual Heavy, My [facility] Additional Instructions Please follow up with um nurse tomorrow to arrange appointment for re- evaluation and to discuss another trial of oral contraception to regulate your menstrual cycle. Otherwise, your exam and lab results did not show signs of an emergent condition at this time. Drink plenty of fluids to ensure hydration. Return to the emergency department for worsening symptoms as described in the accompanying instructions.
[2017-10-06 23:41] LABS: BASO % 0.3 %; BASO ABS # 0.02 K/uL (0-0.2); EOS % 2.9 %; EOS ABS # 0.22 K/uL (0-0.5); HEMATOCRIT 37.8 % (37-47); HEMOGLOBIN 12.8 g/dL (12.0-16.0); IG# 0.02 K/uL (0.00-0.02); LYMPH % 22.7 %; LYMPH ABS # 1.75 K/uL (1.2-3.4); MEAN CELL VOLUME 78.3 fL (80-100); MEAN CORPUSCULAR HEMOGLOBIN 26.5 pg (25-34); MEAN CORPUSCULAR HGB CONC 33.9 g/dl (32-36); MEAN PLATELET VOLUME 11.6 fL (7.4-10.4); MONO ABS # 0.54 K/uL (0.11-0.59); NEUT % 66.8 %; NEUT ABS # 5.16 K/uL (1.4-6.5); PLATELET COUNT 283 K/uL (130-400); RED CELL DISTRIBUTION WIDTH CV 14.3 % (11.5-14.5); RED CELL DISTRIBUTION WIDTH SD 40.6 fL (36.4-46.3); WHITE BLOOD COUNT 7.71 K/uL (4.8-10.8)
[2017-10-06] MEDS ORDERED: JNLF153028 PO (23:55)
[2017-10-06] MEDS ORDERED: CITA20TA9 PO (23:55)
[2017-10-06] MEDS ORDERED: ATR25 PO (23:55)
[2017-10-06] MEDS ORDERED: TRAZ50TA35 PO (23:55)
[2017-10-06] MEDS ORDERED: BENZ100C84 PO (23:57)
[2017-10-06] MEDS ORDERED: PRED10TA PO (23:57)
[2017-10-06] MEDS ORDERED: VNTHFA/IN INH (23:57)
[2017-10-07 00:08] LABS: ALBUMIN 3.6 gm/dl (3.4-5.0); ALT/SGPT 15 U/L (12-78); BLOOD UREA NITROGEN 9 mg/dl (7-18); CALCIUM 8.8 mg/dl (8.5-10.1); CARBON DIOXIDE 26 mmol/L (21-32); CREATININE 0.78 mg/dl (0.60-1.20); GLUCOSE 93 mg/dl (70-99); LIPASE 109 U/L (73-393); POTASSIUM 3.4 mmol/L (3.5-5.1); SODIUM 139 mmol/L (136-145)
[2017-10-07 00:11] LABS: ALKALINE PHOSPHATASE 85 U/L (45-117); AST/SGOT 15 U/L (15-37)
[2017-10-07 01:07] LABS: INFLUENZA B ANTIGEN Neg for Influ B (NEG)
[2017-10-07 02:03] VITALS: BP 122/70; PULSE 84; O2SAT 99
== END 2017-10-07 02:03 | disposition home or self-care (01) ==
LOC: C.EDB 21:53
DX: N92.1 Excessive and frequent menstruation with irregular cycle (principal); K21.9 Gastro-esophageal reflux disease without esophagitis; J45.909 Unspecified asthma, uncomplicated; Z87.440 Personal history of urinary (tract) infections; Z79.899 Other long term (current) drug therapy; Z88.1 Allergy status to other antibiotic agents

== ENCOUNTER → 2017-10-18 | Outpatient (CLI) | payer OTHER ==
[~2017-10-18] MED LIST changes: +ATR25 PO; +BENZ100C84 PO; -CITA10TA8 PO; +CITA20TA9 PO; -HYDR25CA PO; +JNLF153028 PO; +PRED10TA PO; +TRAZ50TA35 PO; +VNTHFA/IN INH
[2017-10-18 17:41] LABS: BASO % 0.3 %; BASO ABS # 0.02 K/uL (0-0.2); EOS % 0.7 %; EOS ABS # 0.05 K/uL (0-0.5); HEMATOCRIT 35.3 % (37-47); HEMOGLOBIN 11.6 g/dL (12.0-16.0); IG# 0.03 K/uL (0.00-0.02); LYMPH % 35.6 %; MEAN CELL VOLUME 78.1 fL (80-100); MEAN CORPUSCULAR HEMOGLOBIN 25.7 pg (25-34); MEAN CORPUSCULAR HGB CONC 32.9 g/dl (32-36); MEAN PLATELET VOLUME 11.9 fL (7.4-10.4); MONO % 7.8 %; MONO ABS # 0.55 K/uL (0.11-0.59); NEUT % 55.2 %; NEUT ABS # 3.87 K/uL (1.4-6.5); PLATELET COUNT 314 K/uL (130-400); RED CELL DISTRIBUTION WIDTH SD 42.3 fL (36.4-46.3); WHITE BLOOD COUNT 7.02 K/uL (4.8-10.8)
== END | disposition home or self-care (01) ==
LOC: C.LABBFT 14:49
PROVIDERS: ATTEND Internal Medicine
DX: R42 Dizziness and giddiness (principal)

== ENCOUNTER → 2017-12-27 | Outpatient (CLI) | payer OTHER ==
[~2017-12-27] MED LIST changes: +CEPH500C PO; +FERR27TA5 PO; +ONDA4TAB10 SL
[2017-12-27 16:42] LABS: HEMATOCRIT 39.2 % (37-47); MEAN CELL VOLUME 79.8 fL (80-100); MEAN CORPUSCULAR HEMOGLOBIN 26.5 pg (25-34); MEAN CORPUSCULAR HGB CONC 33.2 g/dl (32-36); MEAN PLATELET VOLUME 11.5 fL (7.4-10.4); PLATELET COUNT 314 K/uL (130-400); RED CELL DISTRIBUTION WIDTH CV 15.8 % (11.5-14.5); RED CELL DISTRIBUTION WIDTH SD 45.8 fL (36.4-46.3)
[2017-12-27 16:51] LABS: BLOOD UREA NITROGEN 8 mg/dl (7-18); CALCIUM 8.7 mg/dl (8.5-10.1); CARBON DIOXIDE 28 mmol/L (21-32); CREATININE 0.78 mg/dl (0.60-1.20); GLUCOSE 83 mg/dl (70-99); POTASSIUM 3.7 mmol/L (3.5-5.1); SODIUM 141 mmol/L (136-145)
== END | disposition home or self-care (01) ==
LOC: C.LABBFT 14:44
PROVIDERS: ATTEND Internal Medicine
DX: R80.9 Proteinuria, unspecified (principal); D64.9 Anemia, unspecified

== ENCOUNTER 2017-12-28 22:32 | Emergency (ER) | payer OTHER ==
[~2017-12-28] VITALS: Ht 154.9 cm; Wt 83.5 kg
[~2017-12-28 22:32] MED LIST changes: -CEPH500C PO; -FERR27TA5 PO; -ONDA4TAB10 SL
[2017-12-28 22:37] VITALS: TEMP 36.7; Ht 154.9 cm; Wt 83.5 kg
[2017-12-28] MEDS ORDERED: FERR27TA5 PO (22:58)
[2017-12-28] MEDS ORDERED: ONDANSETRON INJ 2 MG/ML 2 ML VIAL IV STA (23:05)
[2017-12-28] MEDS ORDERED: CEFTRIAXONE SOD INJ 1 GM ADDVIAL IV STA (23:05)
[2017-12-28] MEDS ORDERED: SODIUM CHLORIDE 0.9% 1000ML 1,000 ML IV STA (23:05)
[2017-12-28 23:20] LABS: BASO % 0.1 %; BASO ABS # 0.01 K/uL (0-0.2); EOS % 2.3 %; EOS ABS # 0.17 K/uL (0-0.5); HEMATOCRIT 37.6 % (37-47); HEMOGLOBIN 12.7 g/dL (12.0-16.0); IG# 0.01 K/uL (0.00-0.02); LYMPH % 34.8 %; MEAN CELL VOLUME 78.5 fL (80-100); MEAN CORPUSCULAR HEMOGLOBIN 26.5 pg (25-34); MEAN CORPUSCULAR HGB CONC 33.8 g/dl (32-36); MONO % 7.5 %; MONO ABS # 0.56 K/uL (0.11-0.59); NEUT % 55.2 %; NEUT ABS # 4.13 K/uL (1.4-6.5); PLATELET COUNT 274 K/uL (130-400); RED CELL DISTRIBUTION WIDTH CV 15.6 % (11.5-14.5); RED CELL DISTRIBUTION WIDTH SD 44.7 fL (36.4-46.3); WHITE BLOOD COUNT 7.48 K/uL (4.8-10.8)
--- NOTE | 2017-12-28 23:23 | EMERGENCY ROOM VISIT NOTE ---
History Report prepared by Francisco Javier: Rand Wilks Under the Supervision of: Dr. Robert Leal M.D. First contact with patient: 22:58 Chief Complaint: NAUSEA Stated Complaint: [id number] ON ARM History of Present Illness The patient is a 22 year old female who presents to the Emergency Room with complaints of constant nausea starting today. The patient states that she has not been able to eat since lunch. She notes that she did not take anything for the nausea. She notes that nothing makes it better or worse. She states that she has had diarrhea today as well. The patient complains of a red maximus on her arm that she noticed yesterday. She states that she thought it was a bug bite and picked it. She reports that she has one on her chest as well. She state that the one her arm started having the redness spread. The patient notes that she has some chest pain, but thinks it is related to her anxiety. The patient denies vomiting, abdominal pain, swelling in legs, swelling in ankles, shortness of breath, urinary symptoms, and a history of MRSA. The patient doesn' t think she is . Source of History: patient Onset: today Position: other (global) Quality: other (nausea) Timing: constant Associated Symptoms: + chest pain, + diarrhea, No SOB, No vomiting, No abdominal pain, No urinary symptoms Note: The patient complains of a red maximus on her arm. The patient denies swelling in legs and swelling in ankles. Review of Systems See HPI for pertinent positives & negatives. A total of 10 systems reviewed and were otherwise negative. Past Medical & Surgical Medical Problems: (1) Abdominal pain (2) Allergic reaction (3) Anxiety (4) Constipation (5) First trimester (6) GERD (gastroesophageal reflux disease) (7) Left lower quadrant pain (8) Left sided abdominal pain (9) Leukemia, Unspecified, In Remission (10) Ovarian cyst (11) Spontaneous onset of labor (12) Symptoms of urinary tract infection (13) Threatened miscarriage (14) Tooth pain with chewing (15) Unspecified Asthma, Uncomplicated (16) Upper respiratory tract infection (17) Urinary tract infection Family History Heart disease Social History Smoking Status: Never Smoker Alcohol Use: none Drug Use: none Marital Status: single Housing Status: lives with family Occupation Status: student Current/Historical Medications Scheduled Cephalexin Monohydrate (Keflex), 500 MG PO QID Citalopram Hydrobromide (Celexa), 20 MG PO DAILY Ferrous Gluconate (Iron), 27 MG PO DAILY Ondasetron Odt (Zofran Odt), 4-8 MG SL Q6H Scheduled PRN Albuterol Hfa (Ventolin Hfa), 2 PUFFS INH Q6H PRN for SOB/Wheezing Hydroxyzine HCl (Hydroxyzine HCl), 25 MG PO q4-6 hrs PRN for Anxiety Allergies Coded Allergies: Vancomycin (Verified Allergy, Severe, RED MAN SYNDROME, 12/28/17) Physical Exam Vital Signs Date Time Temp Pulse Resp B/P (MAP) Pulse Ox O2 Delivery O2 Flow Rate FiO2 12/29/17 00:18 99 17 123/77 100 12/28/17 22:37 36.7 98 20 145/76 100 Room Air Physical Exam GENERAL: Patient is well appearing and in mild distress. EYES: No scleral icterus, unremarkable pupils. ENT: Mucous membranes are dry, no nasal congestion. NECK: No masses appreciated, no meningismus, trachea is midline. RESPIRATORY: No dyspnea. Clear to auscultation and equal bilaterally. No wheeze , no rhonchi. CARDIOVASCULAR: Mildly tachycardic rate and regular rhythm. No murmurs, rubs, gallops appreciated. GASTROINTESTINAL: Abdomen soft, nontender, no peritonitis. Bowel sounds positive. No masses appreciated. BACK: No midline tenderness, no CVA tenderness EXTREMITIES: Normal motion all extremities, no cyanosis, no edema. NEUROLOGIC: Alert and oriented, no acute motor or sensory deficits, no focal weakness, cranial nerves grossly intact. SKIN: No rash, no jaundice, no diaphoresis. Small, less than 1 cm, scab with mild surrounding erythema to the right upper chest. Left forearm has a 2 cm erythematous area with scab in middle and 8 cm of lymphangitic spread towards the elbow. Medical Decision & Procedures Laboratory Results 12/28/17 23:12 Red Blood Count 4.79, Mean Corpuscular Volume 78.5, Mean Corpuscular Hemoglobin 26.5, Mean Corpuscular Hemoglobin Concent 33.8, Mean Platelet Volume 11.0, Neutrophils (%) (Auto) 55.2, Lymphocytes (%) (Auto) 34.8, Monocytes (%) (Auto) 7.5, Eosinophils (%) (Auto) 2.3, Basophils (%) (Auto) 0.1, Neutrophils # (Auto) 4.13, Lymphocytes # (Auto) 2.60, Monocytes # (Auto) 0.56, Eosinophils # (Auto) 0.17, Basophils # (Auto) 0.01 12/28/17 23:12 Test 12/28/17 23:00 12/28/17 23:12 Urine Color YELLOW Urine Appearance CLEAR (CLEAR) Urine pH 6.5 (4.5-7.5) Urine Specific [place] 1.010 (1.000-1.030) Urine Protein NEG (NEG) Urine Glucose (UA) NEG (NEG) Urine Ketones NEG (NEG) Urine Occult Blood NEG (NEG) Urine Nitrite NEG (NEG) Urine Bilirubin NEG (NEG) Urine Urobilinogen NEG (NEG) Urine Leukocyte Esterase NEG (NEG) Urine WBC (Auto) 0 /hpf (0-5) Urine RBC (Auto) 0-4 /hpf (0-4) Urine Hyaline Casts (Auto) 0 /lpf (0-5) Urine Epithelial Cells (Auto) 10-20 /lpf (0-5) Urine Bacteria (Auto) NEG (NEG) Urine Test NEG (NEG) White Blood Count 7.48 K/uL (4.8-10.8) Red Blood Count 4.79 M/uL (4.2-5.4) Hemoglobin 12.7 g/dL (12.0-16.0) Hematocrit 37.6 % (37-47) Mean Corpuscular Volume 78.5 fL (80-100) Mean Corpuscular Hemoglobin 26.5 pg (25-34) Mean Corpuscular Hemoglobin Concent 33.8 g/dl (32-36) Platelet Count 274 K/uL (130-400) Mean Platelet Volume 11.0 fL (7.4-10.4) Neutrophils (%) (Auto) 55.2 % Lymphocytes (%) (Auto) 34.8 % Monocytes (%) (Auto) 7.5 % Eosinophils (%) (Auto) 2.3 % Basophils (%) (Auto) 0.1 % Neutrophils # (Auto) 4.13 K/uL (1.4-6.5) Lymphocytes # (Auto) 2.60 K/uL (1.2-3.4) Monocytes # (Auto) 0.56 K/uL (0.11-0.59) Eosinophils # (Auto) 0.17 K/uL (0-0.5) Basophils # (Auto) 0.01 K/uL (0-0.2) RDW Standard Deviation 44.7 fL (36.4-46.3) RDW Coefficient of Variation 15.6 % (11.5-14.5) Immature Granulocyte % (Auto) 0.1 % Immature Granulocyte # (Auto) 0.01 K/uL (0.00-0.02) Anion Gap 6.0 mmol/L (3-11) Est Creatinine Clear Calc Drug Dose 114.2 ml/min Estimated GFR () 128.8 Estimated GFR (Non- 111.1 BUN/Creatinine Ratio 13.2 (10-20) Calcium Level 9.2 mg/dl (8.5-10.1) Total Bilirubin 0.4 mg/dl (0.2-1) Direct Bilirubin mg/dl (0-0.2) Aspartate Amino Transf (AST/SGOT) U/L (15-37) Alanine Aminotransferase (ALT/SGPT) 15 U/L (12-78) Alkaline Phosphatase 84 U/L (45-117) Total Protein 7.6 gm/dl (6.4-8.2) Albumin 3.6 gm/dl (3.4-5.0) Lipase 110 U/L (73-393) Laboratory results as reviewed by me. Medications Administered Medications (Trade) Dose Ordered Sig/Jose Route Start Time Stop Time Status Last Admin Dose Admin Sodium Chloride 1,000 ml @ 999 mls/hr Q1H1M STAT IV 12/28/17 23:05 12/29/17 00:05 DC 12/28/17 23:19 999 MLS/HR Ceftriaxone Sodium (Rocephin Inj) 1 gm NOW STAT IV 12/28/17 23:05 12/28/17 23:06 DC 12/28/17 23:19 1 GM Ondansetron HCl (Zofran Inj) 4 mg NOW STAT IV 12/28/17 23:05 12/28/17 23:06 DC 12/28/17 23:20 4 MG ED Course 2300: The patient was evaluated in room B11B. A complete history and physical exam was performed. 2305: Ordered Zofran Inj 4 mg IV, Rocephin Inj 1 gm IV, NSS 1000 ml @ 999 mls/ hr IV. 0008: Reevaluated the patient. Discussed results and discharge instructions: She verbalized understanding and agreement. The patient is ready for discharge. 0015: Ordered Ondansetron HCl 1 homepack PO. Medical Decision 22 yr old female with gastroenteritis symptoms and benign abdominal exam without pain. Labs unremarkable and with benign abdomen I do not feel she requires imaging. With IV fluids and zofran she has resolution of symptoms. She does have cellulitis starting left forearm where she was picking at a scab. No history of MRSA per patient and given lymphangitic spread should be susceptible to keflex. Discussed symptoms requiring RTED. Patient comfortable with plan and stable with no distress at discharge. Medication Reconcilliation Current Medication List: was personally reviewed by me Blood Pressure Screening Patient's blood pressure: Elevated blood pressure Blood pressure disposition: Elevated BP felt to be situational Impression Primary Impression: Nausea, vomiting and diarrhea Additional Impression: Cellulitis of forearm, left Scribe Attestation The scribe's documentation has been prepared under my direction and personally reviewed by me in its entirety. I confirm that the note above accurately reflects all work, treatment, procedures, and medical decision making performed by me. Departure Information Dispostion Home / Self-Care Prescriptions Ondasetron Odt (ZOFRAN ODT) 4 Mg Tab 4-8 MG SL Q6H for Nausea, #12 TAB Prov: Robert Leal M.D. 12/28/17 Cephalexin Monohydrate (Keflex) 500 Mg Cap 500 MG PO QID for 7 Days, #28 CAP Prov: Robert Leal M.D. 12/28/17 Referrals Margy Jones M.D. (PCP) Forms HOME CARE DOCUMENTATION FORM, IMPORTANT VISIT INFORMATION Patient Instructions My [facility] Additional Instructions Rash may increase some over the next 24 hours, then should start gradually improving. Keep arm elevated at level of heart when at rest to help healing. Stop picking at your wound! This is important!!! Return if fevers, spreading increasing significantly, pain, drainage or other concerns. Keep well hydrated and eat a light diet over next 24 hours. Return if increasing vomiting, abdominal pain, blood in stool or other concerns. Follow up with your primary care provider for recheck in the next few days to make sure no need to change antibiotics. Problem Qualifiers
[2017-12-28 23:57] LABS: ALBUMIN 3.6 gm/dl (3.4-5.0); CALCIUM 9.2 mg/dl (8.5-10.1); CREATININE 0.77 mg/dl (0.60-1.20); TOTAL PROTEIN 7.6 gm/dl (6.4-8.2)
[2017-12-28] MEDS ORDERED: ONDA4TAB10 SL (23:59)
[2017-12-28] MEDS ORDERED: CEPH500C PO (23:59)
[2017-12-29] MEDS ORDERED: ONDANSETRON HOME PACK 4MG OD TAB PO ONE (00:15)
[2017-12-29 00:18] VITALS: BP 123/77; PULSE 99; O2SAT 100
== END 2017-12-29 00:19 | disposition home or self-care (01) ==
LOC: C.EDB 22:33
DX: R11.2 Nausea with vomiting, unspecified (principal); R19.7 Diarrhea, unspecified; L03.114 Cellulitis of left upper limb; F41.9 Anxiety disorder, unspecified; K21.9 Gastro-esophageal reflux disease without esophagitis; Z85.6 Personal history of leukemia; J45.909 Unspecified asthma, uncomplicated; Z87.440 Personal history of urinary (tract) infections; Z79.899 Other long term (current) drug therapy; Z88.1 Allergy status to other antibiotic agents

== ENCOUNTER → 2018-03-17 | Outpatient (CLI) | payer OTHER ==
[~2018-03-17] MED LIST changes: -BENZ100C84 PO; -JNLF153028 PO; +OMEP20CA9 PO; +ONDA4TAB10 SL; -PRED10TA PO; -RANI150T3 PO; -TRAZ50TA35 PO
[2018-03-17 17:57] LABS: ALBUMIN 3.5 gm/dl (3.4-5.0); ALKALINE PHOSPHATASE 82 U/L (45-117); ALT/SGPT 13 U/L (12-78); AST/SGOT 12 U/L (15-37); TOTAL PROTEIN 7.1 gm/dl (6.4-8.2)
== END | disposition home or self-care (01) ==
LOC: C.LABBFT 15:26
PROVIDERS: ATTEND Physician Assistant Medical
DX: K76.0 Fatty (change of) liver, not elsewhere classified (principal)

== ENCOUNTER → 2018-03-25 | Outpatient (CLI) | payer OTHER ==
--- NOTE | 2018-03-25 09:25 | DIAGNOSTIC IMAGING REPORT ---
ABDOMEN LIMITED (US) CLINICAL HISTORY: R10.12 Abdominal discomfort in left upper quadrant COMPARISON STUDY: Abdominal ultrasound 01/21/2018. FINDINGS: Real-time sonographic imaging of the left upper quadrant was performed with tax representative images submitted. The spleen is mildly enlarged measuring 13.5 cm in length. The spleen demonstrates a normal echotexture. No splenic masses or perisplenic fluid collections. The splenic vessels appear patent. Normal left kidney measuring 11 cm. No hydronephrosis. IMPRESSION: Mild splenomegaly. Electronically signed by: Sebsa Rushing M.D. 03/25/2018 9:24 AM Dictated Date/Time: 03/25/2018 9:22 AM
== END | disposition home or self-care (01) ==
LOC: C.ULTR 08:42
PROVIDERS: ATTEND Nurse Practitioner
DX: R10.12 Left upper quadrant pain (principal)

== ENCOUNTER 2020-03-13 11:04 | Inpatient (IN) ==
--- NOTE | 2020-03-13 23:50 | History & Physical Report ---
Date of Service March 13, 2020 Assessment & Plan (1) Gestational diabetes mellitus (GDM) affecting : Admit for induction of labor. EFM/toco. IV fluids. Pitocin. OK for epidural. Admission and Anticipated Discharge Date Admission Date: March 13, 2020 History of Present Illness Chief Complaint: IOL Primary Care Provider: Margy Jones MD 24yo @ 40 0/7, induction of labor for GDMA2. + movement, no vaginal bleeding. CTX Q 3-5 min. No leaking fluid. Allergies Allergy/AdvReac Type Severity Reaction Status Date / Time vancomycin Allergy Severe RED MAN Verified 03/13/20 23:23 SYNDROME Home Medications Home Medications Medication Instructions Recorded Confirmed Type PNV cmb#95-ferrous fumarate-FA 1 tab PO DAILY 09/09/19 03/13/20 History [] acetone (urine) test #50 01/11/20 03/13/20 Rx blood sugar diagnostic #150 01/11/20 03/13/20 Rx blood-glucose meter #1 01/11/20 03/13/20 Rx lancets 33 gauge #150 01/11/20 03/13/20 Rx pen needle, diabetic 32 gauge x #50 ea 02/14/20 03/13/20 Rx 5/32" insulin detemir U-100 [Levemir 12 units SQ HS 03/13/20 03/13/20 History FlexTouch U-100 Insuln] Patient History Medical History Amenorrhea Anxiety Encounter for anatomic survey Fatty liver (Acute) GERD (gastroesophageal reflux disease) (Chronic) Hx of varicella Iron deficiency anemia Left sided abdominal pain (Resolved) Oligomenorrhea PCOS (polycystic ovarian syndrome) Post traumatic stress disorder (Acute) Rash and nonspecific skin eruption Seasonal allergies (Acute) Tooth pain with chewing (Resolved) Surgical History History of removal of Port-a-Cath History of wisdom tooth extraction Family History Father Drug abuse Mother Drug abuse Other Anxiety Denies family history of Ovarian cancer Prostate cancer Breast cancer Colorectal cancer Social History (Reviewed 03/13/20 @ 23:47 by JF Vogel Smoking Status: Never smoker Second Hand Exposure: No; Hx Alcohol Use: No Hx Substance Use: No Preferred Language: Greenlandic marital status: Single marital status details: Dandre Riley (23) [phone] Current Living Situation: Family Current Living Situation Comment: lives with FOB, child and sister, 1 dog current occupational status: unemployed 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 No s/s chorio or abruption. Skin: no rashes, warm and dry Psychiatric: A+Ox3, euthymic affect Results & Data ([facility]) Vital Signs (Past 12 Hours) Vital Signs Pulse BP 03/13/20 23:03 86 130/88 Coding Level of Care Code None Diagnoses Gestational diabetes mellitus (GDM) affecting O24.419
[2020-03-13] MEDS ORDERED: OXYTOCIN 30 UNITS/500 ML BAG IV PRN ×2 (23:56)
[2020-03-14 00:21] LABS: Hematocrit (blood only) 35.2 % (37-47); Hemoglobin 11.5 g/dL (12.0-16.0); Mean Corpuscular Hemoglobin 26.6 pg (25-34); Mean Corpuscular Volume 81.5 fL (80-100); Platelet Count 157 K/uL (130-400); RDW Coefficient of Variation 15.3 % (11.5-14.5); RDW Standard Deviation 45.5 fL (36.4-46.3); Red Blood Count 4.32 M/uL (4.2-5.4); White Blood Count 8.13 K/uL (4.8-10.8)
[2020-03-14 00:22] LABS: Mean Corpuscular Hgb Conc 32.7 g/dL (32-36)
[2020-03-14] MEDS: LACTATED RINGER'S 1,000 ML IV PRN ×3 (01:00→06:42)
[2020-03-14] MEDS ORDERED: ePHEDrine sulfate 50 MG/ML AMP ONE (01:09)
[2020-03-14] MEDS ORDERED: BUPIVACAINE 0.25% 30 ML VIAL ONE (01:10)
[2020-03-14] MEDS ORDERED: fentaNYL citrate 100 MCG/2 ML VIAL ONE (01:10)
[2020-03-14] MEDS ORDERED: fentaNYL 2MCG/ML ROPIV 1.25MG/ML 100 ML BAG EPI ONE (01:10)
--- NOTE | 2020-03-14 01:27 | Anesthesiology Consultation ---
Date of Service March 14, 2020 Assessment & Plan (1) Encounter for pre-operative examination: Chart Review Chart Review: Patient NOT seen in Pre Admission Testing and Acceptable Risk for Labor Epidural Consults Requested none ASA ASA3 Proposed Anesthesia Anesthesia Type: Labor Epidural Risk / Benefits Reviewed With: PT / POA / Parent / Guardian, Accepts Plan and Informed Consent Obtained History Height/Weight Height: 5 ft 1 in Weight: 90.591 kg Allergies Allergy/AdvReac Type Severity Reaction Status Date / Time vancomycin Allergy Severe RED MAN Verified 03/13/20 23:23 SYNDROME Medications Home Medications Medication Instructions Recorded Confirmed Last Taken PNV cmb#95-ferrous fumarate-FA 1 tab PO DAILY 09/09/19 03/13/20 03/12/20 22:00 [] acetone (urine) test #50 01/11/20 03/13/20 Unknown blood sugar diagnostic #150 01/11/20 03/13/20 Unknown blood-glucose meter #1 ea 01/11/20 03/13/20 Unknown lancets 33 gauge #150 ea 01/11/20 03/13/20 Unknown pen needle, diabetic 32 gauge x #50 ea 02/14/20 03/13/20 Unknown " insulin detemir U-100 [Levemir 12 units SQ HS 03/13/20 03/13/20 03/11/20 23:00 FlexTouch U-100 Insuln] Active Medications Generic Name Dose Route Start Last Admin Trade Name Freq PRN Reason Stop Dose Admin Lactated Ringer's 1,000 mls @ 125 mls/hr 03/13/20 23:56 03/14/20 01:00 Lr IV 03/15/20 23:55 999 mls/hr .Q8H PRN Administration L&D Protocol Protocol NPO Date Last Intake of Fluids: 03/14/20 Time Last Intake of Fluids: 01:26 Date Last Intake of Solids: 03/13/20 Time Last Intake of Solids: 20:30 Past Medical History Medical History Amenorrhea Anxiety Encounter for anatomic survey Fatty liver (Acute) GERD (gastroesophageal reflux disease) (Chronic) Hx of varicella Iron deficiency anemia Left sided abdominal pain (Resolved) Oligomenorrhea PCOS (polycystic ovarian syndrome) Post traumatic stress disorder (Acute) Rash and nonspecific skin eruption Seasonal allergies (Acute) Tooth pain with chewing (Resolved) Exercise / Class Metabolic Activity II 4-5 Yardwork/Stairs/Walk up hill Past Family History Family History Father Drug abuse Mother Drug abuse Other Anxiety Denies family history of Ovarian cancer Prostate cancer Breast cancer Colorectal cancer Past Surgical History Surgical History History of removal of Port-a-Cath History of wisdom tooth extraction Past Anesthesia History No Hx of Anesthesia Complications History of PONV No Hx of PONV Social History Smoking Status: Never smoker Hx Alcohol Use: No Hx Substance Use: No Review of Systems Patient denies history of abnormal bleeding or bleeding disorder. Patient denies active use of anticoagulants other than low dose aspirin. Patient denies numbness, tingling or weakness in lower extremities. Negative for chest pain or shortness of breath. Physical Exam Vital Signs Last Vital Signs Temp 37 C 03/13/20 23:30 Pulse 86 03/13/20 23:30 Resp 18 03/13/20 23:30 BP 130/88 03/13/20 23:30 Constitutional not obese (Gravid) ENMT Mouth: no TMJ abnormality and oral opening not small Thyromental Distance: > or= 3.5 Finger Breadths Mallampati Class: II Neck normal visual inspection; neck extension not limited Respiratory normal respiratory effort Auscultation: lungs clear to auscultation bilaterally Cardiovascular Rate/Rhythm: regular rate and regular rhythm Heart Sounds: no murmur Neurologic moves all extremities Motor/Sensory: no sensory deficit Psychiatric Orientation: alert and oriented x 3 Testing Laboratory Results 03/14/20 00:10 03/14/20 03/14/20 01:15 00:15 POC Glucose 96 91
[2020-03-14] MEDS ORDERED: ONDANSETRON INJ 2 MG/ML 2 ML VIAL ONE (01:53)
[2020-03-14] MEDS ORDERED: NALOXONE HCL 1 MG in SODIUM CHLORIDE 0.9% 1000ML 1,000 ML IV PRN (02:08)
[2020-03-14] MEDS ORDERED: fentaNYL 2MCG/ML ROPIV 1.25MG/ML 100 ML BAG EPI PRN (02:08)
[2020-03-14] MEDS ORDERED: ONDANSETRON INJ 2 MG/ML 2 ML VIAL IV PRN (02:08)
[2020-03-14] MEDS ORDERED: NALOXONE HCL 0.4 MG/1 ML VIAL/CARP IV PRN (02:08)
[2020-03-14] MEDS ORDERED: ePHEDrine sulfate 50 MG/ML AMP IV PRN (02:08)
[2020-03-14] MEDS ORDERED: DiphenhydrAMINE HCL 50 MG/ML VIAL IV PRN (02:08)
--- NOTE | 2020-03-14 07:00 | Labor Progress Brief Note ---
Date of Service March 14, 2020 Subjective Comfortable with epidural. FHT 120-130s, mod leatha +accels. +early and variable decels. SVE /-1 ( head has come down into pelvis since last exam) Continue labor Assessment & Plan Admission and Anticipated Discharge Date Admission Date: March 13, 2020 Results & Data ([facility]) Vital Signs (Past 12 Hours) Vital Signs Temp Pulse Resp BP Pulse Ox 03/14/20 06:57 78 98 03/14/20 06:52 67 99 03/14/20 06:50 36.9 C 16 03/14/20 06:47 71 98 03/14/20 06:42 66 97 03/14/20 06:37 66 99 03/14/20 06:32 69 99 03/14/20 06:27 84 99 03/14/20 06:22 71 97 03/14/20 06:14 69 97 03/14/20 06:11 71 94 03/14/20 06:09 66 96 03/14/20 06:05 68 94 03/14/20 06:04 63 98 03/14/20 05:59 67 97 03/14/20 05:58 78 105/61 03/14/20 05:54 69 98 03/14/20 05:49 67 99 03/14/20 05:44 74 98 03/14/20 05:39 71 97 03/14/20 05:34 76 98 03/14/20 05:29 72 99 03/14/20 05:28 70 110/66 03/14/20 05:24 73 99 03/14/20 05:19 76 99 03/14/20 05:14 80 100 03/14/20 05:10 36.7 C 18 03/14/20 05:09 84 99 03/14/20 05:04 84 99 03/14/20 04:59 68 98 03/14/20 04:56 69 112/62 03/14/20 04:54 65 97 03/14/20 04:49 66 97 03/14/20 04:44 70 97 03/14/20 04:42 80 117/63 03/14/20 04:39 73 98 03/14/20 04:34 73 98 03/14/20 04:29 70 97 03/14/20 04:27 69 133/77 03/14/20 04:24 68 96 07/23/20 04:19 65 99 03/14/20 04:14 66 98 03/14/20 04:11 61 135/81 03/14/20 04:09 66 97 03/14/20 04:04 61 96 03/14/20 03:59 66 94 03/14/20 03:56 67 142/80 H 03/14/20 03:54 63 95 03/14/20 03:53 61 94 03/14/20 03:49 64 98 03/14/20 03:44 63 94 03/14/20 03:41 65 129/71 03/14/20 03:39 70 97 03/14/20 03:34 69 98 03/14/20 03:29 72 95 03/14/20 03:26 68 121/73 03/14/20 03:24 65 96 03/14/20 03:22 70 94 03/14/20 03:19 65 98 03/14/20 03:14 71 98 03/14/20 03:12 70 120/62 03/14/20 03:09 71 99 03/14/20 03:04 82 98 03/14/20 02:59 75 98 03/14/20 02:57 81 107/58 L 03/14/20 02:54 75 99 03/14/20 02:49 80 99 03/14/20 02:44 83 100 03/14/20 02:41 78 18 112/58 L 03/14/20 02:39 77 99 03/14/20 02:34 81 100 03/14/20 02:29 75 100 03/14/20 02:25 36.5 C 16 03/14/20 02:24 80 100 03/14/20 02:23 76 109/60 03/14/20 02:19 83 99 03/14/20 02:18 82 105/59 L 03/14/20 02:14 80 99 03/14/20 02:12 82 109/57 L 03/14/20 02:09 85 100 03/14/20 02:07 78 110/57 L 03/14/20 02:04 83 99 03/14/20 02:02 85 112/55 L 03/14/20 01:59 82 99 03/14/20 01:57 93 H 121/80 03/14/20 01:54 93 H 100 07/20 01:49 81 99 03/14/20 01:44 94 H 100 03/14/20 01:39 87 97 03/14/20 01:34 81 99 03/14/20 01:29 82 100 03/13/20 23:30 37 C 86 18 130/88 03/13/20 23:03 86 130/88 Coding Level of Care Code None
--- NOTE | 2020-03-14 09:49 | Labor Progress Brief Note ---
Date of Service March 14, 2020 Subjective Reason For Note: Requested By RN and Change In Status per nurse pt feels urge to push and is completely dilated Assessment & Plan (1) Gestational diabetes mellitus (GDM) affecting : (2) Encounter for induction of labor: begin 2nd stage. pt aware i am assuming care. Admission and Anticipated Discharge Date Admission Date: March 13, 2020 Physical Exam Genitourinary: Manual OB Exam: + cervical dilation 10 cm OB Exam Monitor Tracing: + external FHT monitor used (115 mod variability), + external uterine monitor used (q2-3) and + category I Results & Data ([facility]) Vital Signs (Past 12 Hours) Vital Signs Temp Pulse Resp BP Pulse Ox 03/14/20 09:47 129 H 88 L 03/14/20 09:42 108 H 90 03/14/20 09:37 102 H 100 03/14/20 09:36 97 H 89 L 03/14/20 09:35 97 H 130/58 L 03/14/20 09:32 95 H 100 03/14/20 09:27 79 100 03/14/20 09:22 80 99 03/14/20 09:20 82 121/71 03/14/20 09:17 78 100 03/14/20 09:15 98.4 F 18 03/14/20 09:12 82 100 03/14/20 09:07 85 98 03/14/20 09:05 71 120/70 03/14/20 09:02 75 100 03/14/20 09:00 18 03/14/20 08:57 77 100 03/14/20 08:52 72 99 03/14/20 08:50 78 113/67 03/14/20 08:47 72 98 03/14/20 08:42 73 97 03/14/20 08:37 76 97 03/14/20 08:35 71 109/60 03/14/20 08:32 72 100 03/14/20 08:30 18 03/14/20 08:27 72 100 03/14/20 08:22 74 99 03/14/20 08:17 70 97 03/14/20 08:12 83 97 03/14/20 08:07 78 99 03/14/20 08:02 75 99 03/14/20 08:00 20 03/14/20 07:57 74 100 03/14/20 07:52 71 98 03/14/20 07:47 75 98 03/14/20 07:42 83 99 07 07:37 80 98 03/14/20 07:32 72 98 03/14/20 07:30 18 03/14/20 07:28 83 92 03/14/20 07:27 72 99 07 07:22 81 99 03/14/20 07:20 98.2 F 18 03/14/20 07:17 71 100 03/14/20 07:12 63 97 03/14/20 07:07 71 98 03/14/20 07:02 66 98 03/14/20 06:57 78 98 03/14/20 06:52 67 99 03/14/20 06:50 98.4 F 16 03/14/20 06:47 71 98 03/14/20 06:42 66 97 03/14/20 06:37 66 99 03/14/20 06:32 69 99 03/14/20 06:27 84 99 03/14/20 06:22 71 97 03/14/20 06:14 69 97 03/14/20 06:11 71 94 03/14/20 06:09 66 96 03/14/20 06:05 68 94 03/14/20 06:04 63 98 03/14/20 05:59 67 97 03/14/20 05:58 78 105/61 03/14/20 05:54 69 98 03/14/20 05:49 67 99 03/14/20 05:44 74 98 03/14/20 05:39 71 97 03/14/20 05:34 76 98 03/14/20 05:29 72 99 03/14/20 05:28 70 110/66 03/14/20 05:24 73 99 03/14/20 05:19 76 99 03/14/20 05:14 80 100 03/14/20 05:10 98.1 F 18 03/14/20 05:09 84 99 03/14/20 05:04 84 99 03/14/20 04:59 68 98 03/14/20 04:56 69 112/62 03/14/20 04:54 65 97 03/14/20 04:49 66 97 03/14/20 04:44 70 97 03/14/20 04:42 80 117/63 03/14/20 04:39 73 98 03/14/20 04:34 73 98 03/14/20 04:29 70 97 03/14/20 04:27 69 133/77 03/14/20 04:24 68 96 03/14/20 04:19 65 99 03/14/20 04:14 66 98 03/14/20 04:11 61 135/81 03/14/20 04:09 66 97 03/14/20 04:04 61 96 03/14/20 03:59 66 94 03/14/20 03:56 67 142/80 H 03/14/20 03:54 63 95 03/14/20 03:53 61 94 03/14/20 03:49 64 98 03/14/20 03:44 63 94 03/14/20 03:41 65 129/71 03/14/20 03:39 70 97 03/14/20 03:34 69 98 03/14/20 03:29 72 95 03/14/20 03:26 68 121/73 03/14/20 03:24 65 96 03/14/20 03:22 70 94 03/14/20 03:19 65 98 03/14/20 03:14 71 98 03/14/20 03:12 70 120/62 03/14/20 03:09 71 99 03/14/20 03:04 82 98 03/14/20 02:59 75 98 03/14/20 02:57 81 107/58 L 03/14/20 02:54 75 99 03/14/20 02:49 80 99 03/14/20 02:44 83 100 03/14/20 02:41 78 18 112/58 L 03/14/20 02:39 77 99 03/14/20 02:34 81 100 03/14/20 02:29 75 100 03/14/20 02:25 97.7 F 16 03/14/20 02:24 80 100 03/14/20 02:23 76 109/60 03/14/20 02:19 83 99 03/14/20 02:18 82 105/59 L 03/14/20 02:14 80 99 03/14/20 02:12 82 109/57 L 03/14/20 02:09 85 100 03/14/20 02:07 78 110/57 L 03/14/20 02:04 83 99 07/23/20 02:02 85 112/55 L 03/14/20 01:59 82 99 03/14/20 01:57 93 H 121/80 03/14/20 01:54 93 H 100 03/14/20 01:49 81 99 03/14/20 01:44 94 H 100 03/14/20 01:39 87 97 03/14/20 01:34 81 99 03/14/20 01:29 82 100 03/13/20 23:30 98.6 F 86 18 130/88 03/13/20 23:03 86 130/88 Coding Level of Care Code None Diagnoses Gestational diabetes mellitus (GDM) affecting O24.419 Encounter for induction of labor Z34.90
[2020-03-14] MEDS ORDERED: ACETAMINOPHEN 325 MG TAB PO PRN (10:14)
[2020-03-14] MEDS ORDERED: OXYCODONE/ACETAMINOPHEN 5mg/325mg TAB PO PRN (10:14)
--- NOTE | 2020-03-14 10:18 | Delivery Summary ---
Vaginal Delivery Summary Date of Service March 14, 2020 The patient dilated to complete and pushed to deliver a viable female infant Apgars 7 and 9 via over 2nd degree perineal laceration. Mild shoulder dystocia encountered. Relieved with McRobert's maneuvers and effective maternal expulsive efforts with gentle downward traction of cephalic. Mouth and nose bulb suctioned at perineum. Shoulders and body delivered with ease. was not vigorous and cord doubly clamped and cut and to radiant warmer for drying and attention. Laceration repaired in usual fashion with 3-0 vicryl. Placenta delivered spontaneously and intact, three-vessel cord. Hemostasis achieved with dilute pitocin and uterine massage and drainage of the bladder for approximately 75 cc under sterile conditions. Cervix and sulci intact. EBL 300 cc. Cord blood and cord gases obtained. Mother and baby stable recovery. [facility] [place] Charge Vaginal Delivery Codes: 90149 global code for the antepartum, delivery, and post-
[2020-03-14 10:43] LABS: Base Excess Cord Venous Blood -4.1 mEq/L (-7.7-1.9); Cord Venous Blood HCO3 22 mmol/L (18.4-26.8); Cord Venous Blood PCO2 45 mmHg (30.4-57.2); Cord Venous Blood PO2 30 mmHg (14.1-43.3); Cord Venous Blood pH 7.31 (7.20-7.44)
[2020-03-14] MEDS ORDERED: BENZOCAINE 20% AER SPR 82.5 GM CAN EXT PRN (10:46)
[2020-03-14] MEDS ORDERED: HYDROCORTISONE ACETATE 25 MG SUPP PR PRN (10:46)
[2020-03-14] MEDS ORDERED: OXYTOCIN 30 UNITS/500 ML BAG IV PRN (10:46)
[2020-03-14] MEDS ORDERED: DIPHTHERIA/TETANUS/PERTUSSIS 0.5 ML SYR/VIAL IM ONE (10:46)
[2020-03-14] MEDS ORDERED: SUPERCREAM 0.870% 15 GM JAR EXT PRN (10:46)
[2020-03-14 10:47] LABS: Base Excess Cord Arterial Bld -3.8 mEq/L (-9-1.8); CO2 Cord Arterial Blood 62 mmHg (39.1-73.5); HCO3 Cord Arterial Blood 25 mmol/L (19.7-28.5); PO2 Cord Arterial Blood 19 mmHg (4.1-31.7); pH Cord Arterial Blood 7.23 (7.1-7.38)
[2020-03-14 10:48] LABS: O2 Saturation Cord Venous Bld < 60.0 % (<68); Oxygen Sat Cord Arterial Blood < 60.0 % (<60)
[2020-03-14] MEDS ORDERED: OXYTOCIN 20 UNITS in LACTATED RINGER'S 1,000 ML IV SCH (11:00)
--- NOTE | 2020-03-14 12:03 | Anesthesia Procedure Note ---
Date of Service March 14, 2020 Anesthesia Post Epidural Note Vital Signs Vital Signs: Temp Pulse Resp BP Pulse Ox 36.9 C 67 18 124/78 92 03/14/20 09:15 03/14/20 11:50 03/14/20 11:20 03/14/20 11:50 03/14/20 10:48 Pain Intensity Lower Abdomen: Pain Intensity: 0 Notes Mental Status: alert / awake / arousable and participated in evaluation Patient Amnestic to Procedure: No Nausea / Vomiting: adequately controlled Pain: adequately controlled Airway Patency, RR, SpO2: stable & adequate BP & HR: stable & adequate Hydration State: stable & adequate Neuraxial Anesthesia: was administered and sensory block is resolving Anesthetic Complications: no major complications apparent and Pt Satisfied with anesthetic care Epidural: Removed without complications and With tip intact
[2020-03-14] MEDS: IBUPROFEN 600 MG TAB PO PRN ×2 (14:04→18:43)
[2020-03-14 19:25] LABS: Hematocrit (blood only) 34.2 % (37-47); Hemoglobin 11.5 g/dL (12.0-16.0)
[2020-03-14] MEDS: DOCUSATE SODIUM 100 MG CAP PO SCH (21:30)
[2020-03-15] MEDS: IBUPROFEN 600 MG TAB PO PRN ×2 (00:17→11:40)
--- NOTE | 2020-03-15 06:06 | Obstetrical Progress Note ---
Date of Service <Pavel Crocker MD - Last Filed: 03/15/20 07:36> March 15, 2020 Assessment & Plan <Pavel Crocker MD - Last Filed: 03/15/20 07:36> (1) : - Feels well today. Eating well, voiding well, ambulating well. - Pain well controlled with analgesics. - Routine care - After discharge will have 6 week followup. Subjective <Pavel Crocker MD - Last Filed: 03/15/20 07:36> Abi is a 24 y/o female ; PPD #1 following spontaneous vaginal delivery at 40+ weeks; doing well this morning; light abdominal cramping & 2/10 pain well managed on analgesics; voiding well; tolerating meals overnight and able to ambulate some; some persistent lochia with some improvement this morning. Review of Systems Constitutional: denies fever, chills, sweat, headache Respiratory: denies shortness of breath, difficulty breathing Cardiac: denies chest pain, palpitations, chest pressure Breast: denies breast pain : denies dysuria Physical Exam <Pavel Crocker MD - Last Filed: 03/15/20 07:36> General: Alert, oriented. No acute distress. Cardiac: Regular rate and rhythm, no murmurs/rubs/gallops. Respiratory: Clear to auscultation bilaterally a/p, no wheezes/rales/rhonchi. No increased work of breathing. Symmetrical chest rise. No respiratory distress. Abdomen: Soft, nontender, nondistended. Bowel sounds present. Uterus: Uterine fundus firm, palpable 1cm below umbilicus. Lower Extremities: No lower extremity edema or swelling. No deep calf pain. Jaycee's negative bilaterally. Results & Data <Pavel Crocker MD - Last Filed: 03/15/20 07:36> Vital Signs (Past 12 Hours) Vital Signs Temp Pulse Resp BP Pulse Ox 03/15/20 04:20 36.5 C 80 20 112/76 03/15/20 00:10 36.8 C 66 18 121/80 95 03/14/20 19:55 36.7 C 72 20 109/71 97 <Tena Molina MD, FACOG - Last Filed: 03/15/20 07:48> Co-Signing Physician Notes Resident Physician Supervision Note: I was present with Dr. Hart during the history and exam. I discussed the case with the resident and agree with the findings and plan as documented in the note. Any exceptions or clarifications are listed here: Doing well, lighheadedness is better. She wants to consider d/c home later today if day goes well. instructions to be reviewed by resident. f/u 6wk pp. bottle, rhpos, ri. Documented By: Tena Molina MD, FACOG Resident Activity Tracking <Pavel Crocker MD - Last Filed: 03/15/20 07:36> Resident Involvement: Resident Care Provided Care Provided: OB Delivery
[2020-03-15] MEDS: DOCUSATE SODIUM 100 MG CAP PO SCH ×2 (08:41→21:28)
[2020-03-16] MEDS: IBUPROFEN 600 MG TAB PO PRN (04:42)
--- NOTE | 2020-03-16 07:13 | Obstetrical Progress Note ---
Date of Service <Pavel Crocker MD - Last Filed: 03/16/20 07:13> March 16, 2020 Assessment & Plan <Pavel Crocker MD - Last Filed: 03/16/20 07:13> (1) : - Feels well today. Eating well, voiding well, ambulating well. - Pain well controlled with analgesics. - Routine care - After discharge will have 6 week followup. Subjective <Pavel Crocker MD - Last Filed: 03/16/20 07:13> Abi is a 24 y/o female ; PPD #2 following spontaneous vaginal delivery at 40+ weeks. Doing well this morning. Light abdominal cramping & mild pain well managed on analgesics. Voiding well. Tolerating meals overnight and able to ambulate some. Some persistent lochia with some improvement this morning. Rubella immune. Blood type O positive. Review of Systems Constitutional: denies fever, chills, sweat, headache Respiratory: denies shortness of breath, difficulty breathing Cardiac: denies chest pain, palpitations, chest pressure Breast: denies breast pain : denies dysuria Physical Exam <Pavel Crocker MD - Last Filed: 03/16/20 07:13> General: Alert, oriented. No acute distress. Cardiac: Regular rate and rhythm, no murmurs/rubs/gallops. Respiratory: Clear to auscultation bilaterally a/p, no wheezes/rales/rhonchi. No increased work of breathing. Symmetrical chest rise. No respiratory distress. Abdomen: Soft, nontender, nondistended. Bowel sounds present. Uterus: Uterine fundus firm, palpable 2cm below umbilicus. Lower Extremities: No lower extremity edema or swelling. No deep calf pain. Jaycee's negative bilaterally. Results & Data <Pavel Crocker MD - Last Filed: 03/16/20 07:13> Vital Signs (Past 12 Hours) Vital Signs Temp Pulse Resp BP Pulse Ox 03/16/20 04:35 137/72 03/15/20 23:10 36.7 C 60 16 149/99 H 97 03/15/20 19:20 36.4 C L 62 16 146/91 H 99 <Shandra Perez MD, FACOG - Last Filed: 03/16/20 09:15> Co-Signing Physician Notes Resident Physician Supervision Note: I interviewed and examined the patient. Discussed with Dr. Hart and agree with findings and plan as documented in the note. Any exceptions or clarifications are listed here: [None] Documented By: Shandra Perez MD, FACOG Resident Activity Tracking <Pavel Crocker MD - Last Filed: 03/16/20 07:13> Resident Involvement: Resident Care Provided Care Provided: OB Delivery
[2020-03-16] MEDS: DOCUSATE SODIUM 100 MG CAP PO SCH (08:34)
== END 2020-03-16 12:21 | disposition home or self-care (01) | DRG 806 ==
LOC: 4S1 22:48 → 4S2 03-14 13:20

== ENCOUNTER 2020-03-27 16:01 | Inpatient (IN) ==
[2020-03-27] MEDS ORDERED: MAG SULFATE 4GM BOLUS FROM BAG IV ONE (16:12)
[2020-03-27 16:34] LABS: Hematocrit (blood only) 41.3 % (37-47); Hemoglobin 13.8 g/dL (12.0-16.0); Mean Corpuscular Hemoglobin 27.7 pg (25-34); Mean Corpuscular Volume 82.9 fL (80-100); Platelet Count 250 K/uL (130-400); RDW Coefficient of Variation 15.1 % (11.5-14.5); Red Blood Count 4.98 M/uL (4.2-5.4); White Blood Count 6.95 K/uL (4.8-10.8)
--- NOTE | 2020-03-27 16:39 | History & Physical Report ---
Date of Service March 27, 2020 Assessment & Plan (1) Severe preeclampsia: Magnesium therapy x24 hours based on working diagnosis of preeclampsia with severe features, per Drs. Washburn and Brittany, unable to be ruled out at this time. Labwork to recheck renal function now. Serial magnesium levels / close monitoring / seizure precautions. Hold oral antihypertensives for now (still under effect of this morning's dose until tomorrow anyway) and consider whether or not to continue after magnesium is completed. Would use labetalol PO if therapy is felt to be required, and have close follow up with [facility] until at least 6 weeks pp, after which residual hypertension would be classified as chronic and could be managed via PCP. History of Present Illness Chief Complaint: 24yo s/p on 03/14, following complicated by A2GDM. She was discharged in good condition 03/16. Patient returned to ER for a visit late 03/16 into 03/17 compalining of anxiety, low heart rate, and "I think I have cardiomyopathy." She requested vistaril. Her BP was 160/95 on admission, 140/72 later in that visit; CR 0.93 plts 165 AST/ALT 9 and 8. Urine dip was 2+ protein but was likely contaminated. She had normal coag studies. Dr. Keller was consulted and recommended f/u in [facility] office. The patient was also referred by the ER to her PCP "for BP follow up." She saw PCP on 03/19 (Guerline HALE) and notes from that visit show c/o anxiety, bilateral leg pain, headache and chest tightness. She noted that vistaril had been unhelpful and was offered but declined benzo. She was checked for DVT and PE by imaging including doppers and Chest CT. Lexapro was started. Patient was seen by PCP again 03/25 for acute blood pressure check and "near continual" headache since childbirth. She was also seen in ER, including by anesthesiology, later that same date and they did not feel her h/a was consistent with spinal headache. She had a normal MRI/MRV of the brain and her BP was labile but I see several recorded values in the ER note including 130/93 and 133/90 and 141/92 and 151/100 and 119/99 and 136/110. Labs done again and Cr now 0.97, liver enzymes normal, urine protein now negative. Patient seen by PCP again 03/26 for BP check, 138/94. She was started on propranolol ER 60mg daily by PCP. She contacted [facility] 03/26 to notify us of med start. She was given precautions of signs and symptoms to watch for, follow up appointment in our office , and also instructed to continue to follow up for BP checks and med adjustments with PCP since they had started her meds. She contacted on-call [facility] again later 03/26 to complain of headache and was offered (but declined) to come to L&D for eval. She was called by our office 03/27 in the AM to recommend she be seen both in our office and by Dr. Washburn, who specializes in peripartum headache from a neurology perspective. She was seen by Dr. Washburn this morning and among her differential diagnoses she continues to feel preeclampsia must be the diagnosis of exclusion. The patient was then seen by Dr. Soto at the custom decor[facility] consultant office. Since the patient continues to have headache, Dr. Soto felt it best that the patient receive 24 hours of IV magnesium therapy for presumed preeclampsia with severe features (REDMAN). On presentation to L&D the patient has a blood pressure of 113/81, with her next BP being 136/94. She denies REDMAN at this time but says she had one at 2pm today for which she took tylenol and did get the REDMAN to resolve. She also took a dose of propranolol this morning. She complains of mild RUQ pain that comes and goes. She states she has no swelling nor did she ever feel she had swelling during or after . We discussed the lack of clarity around her diagnosis, and that preeclampsia can be difficult to prove or disprove since it can present in atypical ways, without all the classic signs and/or symptoms. It is still possible she has anxiety-related hypertension and/or tension headache. So far, brain imaging and cardiac studies have failed to show any PRES or cardiomyopathy. We discussed that magnesium therapy is not without risk, however the most serious remaining diagnosis for her at this time that cannot be ruled out would be severe atypical preeclampsia, and that is why magnesium therapy was recommended for her out of an abundance of caution. She is agreeable to having the IV magnesium. Primary Care Provider: Margy Jones MD Allergies Allergy/AdvReac Type Severity Reaction Status Date / Time vancomycin Allergy Severe Herminia Verified 03/27/20 15:11 syndrome Home Medications Home Medications Medication Instructions Recorded Confirmed Type PNV cmb#95-ferrous fumarate-FA 1 tab PO DAILY 09/09/19 03/27/20 History [] escitalopram oxalate 20 mg tablet 20 mg PO DAILY #30 tab 03/19/20 03/27/20 Rx hydroxyzine HCl 25 mg tablet 25 mg PO QID PRN #60 tab 03/19/20 03/27/20 Rx propranolol 60 mg capsule,24 60 mg PO DAILY #30 cap 03/26/20 03/27/20 Rx hr,extended release Past Med/Surg History Medical History Amenorrhea Anxiety (Acute) Encounter for anatomic survey Fatty liver (Acute) GERD (gastroesophageal reflux disease) (Chronic) Hx of varicella Iron deficiency anemia Left sided abdominal pain (Resolved) Oligomenorrhea PCOS (polycystic ovarian syndrome) Post traumatic stress disorder (Acute) Rash and nonspecific skin eruption Seasonal allergies (Acute) Tooth pain with chewing (Resolved) Surgical History History of removal of Port-a-Cath History of wisdom tooth extraction Family History Father Drug abuse Mother Drug abuse Other Anxiety Denies family history of Ovarian cancer Prostate cancer Breast cancer Colorectal cancer Social History Smoking Status: Never smoker Second Hand Exposure: No; Hx Alcohol Use: No Hx Substance Use: No Preferred Language: Andorran Communication Ability: Effective Visual Impairment: No Limitations Armhole Sewer Required: No Beliefs That Will Affect Care: None marital status: Single marital status details: Dandre Hernandezbson (23) [phone] Current Living Situation: Significant Other Current Living Situation Comment: lives with FOB, child and sister, 1 dog current occupational status: unemployed 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 Other Information That Helps Us Care for You: No Feels Safe at Home: Yes Safety Concerns: Feels Safe At This Time Physical Exam Constitutional: WD/WN, vitals as above Eyes: PERRL, conjunctivae normal, anicteric sclerae ENMT: external ear and nose normal, oropharynx normal Neck: supple Respiratory: normal respiratory effort and able to speak in complete sentences; no respiratory distress Cardiovascular: Rate/Rhythm: regular rate and regular rhythm Gastrointestinal (Abdomen): Gravid / AGA, nontender Musculoskeletal: no cyanosis or clubbing, extremities motor strength 5/5 Skin: no rashes, warm and dry Neurologic: patellar DTR's 2+ bilat, sensation intact Psychiatric: A+Ox3, euthymic affect Lymphatic: no cervical or axillary lymphadenopathy Results & Data Results & Data ([facility]) Vital Signs (Past 12 Hours) Vital Signs Pulse BP 03/27/20 16:10 82 113/81 Code Status & VTE Plan VTE Prophylaxis Plan VTE Prophylaxis will be ordered: Yes PG Care Time/CCT Total # of Minutes Spent Total Time Spent with Patient: Total time spent is greater than 50% in coordin ation of care (as documented) at patient's floor/unit and/or counseling patient: Coding Level of Care Code None Diagnoses Severe preeclampsia O14.10
[2020-03-27 16:53] LABS: Alanine Aminotransferase 15 U/L (12-78); Aspartate Aminotransferase 12 U/L (15-37); BUN Creatinine Ratio 12.2 (10-20); Bilirubin Direct < 0.1 mg/dl (0-0.2); Blood Urea Nitrogen 12 mg/dl (7-18); Calcium 8.4 mg/dl (8.5-10.1); Carbon Dioxide 28 mmol/L (21-32); Chloride 109 mmol/L (98-107); Creatinine Clr Calc Pharmacy 84.5 ml/min; Est GFR (African American) 93.7; Est GFR (Non-African American) 80.9; Glucose 88 mg/dl (70-99); Mean Corpuscular Hgb Conc 33.4 g/dL (32-36); Potassium 3.9 mmol/L (3.5-5.1); Sodium 142 mmol/L (136-145); Uric Acid 6.1 mg/dl (2.6-7.2)
[2020-03-27] MEDS: LACTATED RINGER'S 1,000 ML IV PRN (16:54)
[2020-03-27] MEDS: MAGNESIUM SULFATE / WTR 40 GM/1,000 ML BAG IV SCH (16:55)
[2020-03-27 16:56] LABS: Albumin Globulin Ratio 0.7 (0.9-2); Alkaline Phosphatase 110 U/L (45-117); Bilirubin,Total 0.3 mg/dl (0.2-1); Globulin 4.2 gm/dl (2.5-4.0); Total Protein 7.2 gm/dl (6.4-8.2)
[2020-03-27 17:50] LABS: Creatinine Urine Random 72.7 mg/dl; Protein Creatinine Ratio Urine 0.2 (0-0.2); Total Protein Urine Random 10.6 mg/dl (0-11.9)
[2020-03-27] MEDS: ACETAMINOPHEN 325 MG TAB PO PRN (20:18)
[2020-03-28] MEDS: ACETAMINOPHEN 325 MG TAB PO PRN ×4 (00:23→23:29)
[2020-03-28] MEDS: LACTATED RINGER'S 1,000 ML IV PRN (05:28)
--- NOTE | 2020-03-28 07:20 | Obstetrical Progress Note ---
Date of Service <Raul Watson MD - Last Filed: 03/28/20 07:26> March 28, 2020 Assessment & Plan <Raul Watson MD - Last Filed: 03/28/20 07:26> (1) Severe preeclampsia: Abi is a 24 y/o female s/p on 03/14 that was complicated only f or diet-controlled GDM who is here for evaluation for / r/o of severe atypical preeclampsia - Currently on Mg for 24 hours -- will continue with this until later tonight for neuroprotection aned seizure precautions - Reflexes in upper and lower extremities are equal and 2+ b/l - BPs have been low, with most recent reading this AM at 90/62 (~0630hr) -- in the setting of propranolol use, this is to be expected. Will continue to monitor and can consider fluids PRN - q6h Mg checks - Patient's symptoms (REDMAN, chest pressure, vague but mild RUQ pain) are at baseline and have not changed overnight. Continue to monitor. - Continue to hold home propranolol while here in setting of hypotension -- anticipate its discontinuation upon d/c (can consider labetolol if needed) Subjective <Raul Watson MD - Last Filed: 03/28/20 07:26> Abi is a 24 y/o female s/p on 03/14 that was complicated only for diet-controlled GDM who is here for evaluation for / r/o of severe atypical preeclampsia. NAEO and reports feeling well at the bedside this morning. Does continue to endorse the presence of a very mild baseline central chest pressure which she notes has not changed since her admission here for observation. She noted this morning "I think they may be due to anxiety." Denies any associated pain or shortness of breath. With regards to her headaches, say that these have remained mild at baseline for her and have continued to respond well to acetaminophen -- denies any changes in vision overnight. Endorses some occa sional RUQ pain that is non-specific and not associated with any nausea, vomiting, or limitation in movement. Currently on Mg for neuroprotection and last dose of her propranolol was yesterday AM. BPs have decreased from 99/55 >> 90/62 this AM. Review of Systems Per HPI Physical Exam <Raul Watson MD - Last Filed: 03/28/20 07:26> General: Alert, oriented. No acute distress. Cardiac: Regular rate and rhythm, no murmurs/rubs/gallops. Respiratory: Clear to auscultation bilaterally a/p, no wheezes/rales/rhonchi. No increased work of breathing. Symmetrical chest rise. No respiratory distress. Abdomen: Soft, nontender, nondistended. No pain to palpation in the RUQ this AM. Uterus: Uterine fundus firm, palpable 4-5cm below the umbilicus. Lower Extremities: No lower extremity edema or swelling. No deep calf pain. Jaycee's negative bilaterally. Neurologic: Biceps reflex 2+ b/l. Brachioradialis reflex 2+ b/l. Patellar reflexes 2+ b/l. Achilles reflex 2+ b/l. No clonus b/l. Results & Data <Raul Watson MD - Last Filed: 03/28/20 07:26> Vital Signs (Past 12 Hours) Vital Signs Temp Pulse Resp BP Pulse Ox 03/28/20 07:06 70 96 03/28/20 06:57 77 116/72 03/28/20 06:51 74 98 03/28/20 06:36 68 97 03/28/20 06:24 68 18 90/62 L 97 03/28/20 06:21 68 96 03/28/20 06:18 77 90/62 L 03/28/20 06:06 67 97 03/28/20 05:51 69 97 03/28/20 05:36 71 97 03/28/20 05:26 68 94/58 L 03/28/20 05:21 70 97 03/28/20 05:20 69 18 94/58 L 97 03/28/20 05:06 68 97 03/28/20 04:51 67 96 03/28/20 04:36 67 96 03/28/20 04:26 36.5 C 72 16 99/55 L 94 03/28/20 04:21 68 99/55 L 96 03/28/20 04:06 70 97 03/28/20 03:51 72 96 03/28/20 03:36 70 97 03/28/20 03:25 70 16 92/52 L 97 03/28/20 03:23 69 92/52 L 03/28/20 03:21 69 96 03/28/20 03:06 68 96 03/28/20 02:51 69 96 03/28/20 02:36 68 96 03/28/20 02:21 69 95 03/28/20 02:15 77 16 97/62 L 97 03/28/20 02:12 72 97/62 L 03/28/20 02:06 71 96 03/28/20 01:51 70 96 03/28/20 01:36 70 96 03/28/20 01:23 64 98/57 L 03/28/20 01:21 71 96 03/28/20 01:20 70 16 98/57 L 96 03/28/20 01:06 72 96 03/28/20 00:51 71 96 03/28/20 00:36 67 97 03/28/20 00:34 68 16 99/62 L 100 03/28/20 00:23 67 99/62 L 03/28/20 00:21 81 96 03/28/20 00:06 72 96 03/28/20 00:05 77 89 L 03/27/20 23:51 73 95 03/27/20 23:36 71 96 03/27/20 23:23 72 102/65 03/27/20 23:21 71 96 03/27/20 23:20 36.5 C 79 16 102/65 98 03/27/20 23:06 71 97 03/27/20 22:51 73 97 03/27/20 22:36 70 97 03/27/20 22:26 76 104/76 03/27/20 22:21 72 99 03/27/20 22:20 74 16 104/76 99 03/27/20 22:06 70 99 03/27/20 21:51 65 98 03/27/20 21:36 72 97 03/27/20 21:24 76 116/70 03/27/20 21:21 68 96 03/27/20 21:18 36.5 C 76 16 116/70 98 03/27/20 21:06 79 98 03/27/20 20:51 81 99 03/27/20 20:39 75 16 126/76 100 03/27/20 20:36 79 97 03/27/20 20:21 84 97 03/27/20 20:18 75 126/76 03/27/20 20:06 74 96 03/27/20 19:51 79 97 03/27/20 19:36 76 99 03/27/20 19:21 77 100 03/27/20 19:18 77 128/83 03/27/20 19:15 36.7 C 81 16 128/83 100 03/27/20 19:12 67 110/72 Resident Activity Tracking <Raul Watson MD - Last Filed: 03/28/20 07:26> Resident Involvement: Resident Care Provided Care Provided: Adult Hospital Medicine
[2020-03-28] MEDS: MAGNESIUM SULFATE / WTR 40 GM/1,000 ML BAG IV SCH (10:02)
--- NOTE | 2020-03-29 07:19 | Obstetrical Progress Note ---
Date of Service <Raul Watson MD - Last Filed: 03/29/20 07:27> March 29, 2020 Assessment & Plan <Raul Watson MD - Last Filed: 03/29/20 07:27> (1) Severe preeclampsia: Abi is a 24 y/o female s/p on 03/14 that was complicated only f or diet-controlled GDM who is here for evaluation for / r/o of severe atypical preeclampsia - Was on Mg for 24 hours for neuroprotection in setting of possible severe atypical preeclampsia (discontinued yesterday afternoon) - Reflexes in upper and lower extremities were equal and 2+ b/l yesterday, equal and 1+ b/l today - BPs stable over last 12 hours in the 110s/80s. - Most recent Mg check at 12:43 PM yesterday was therapeutic at 7.8 mg/dL - Headaches with transient facial numbness that respond to tylenol may represent complicated migraines -- rec outpatient f/u with neurology upon discharge. At this time, they do not appear to be correlated with BPs / other preeclamptic-like symptoms, but will continue to monitor until d/c. - Stable for d/c today - D/C propranolol -- BPs are stable Subjective <Raul Watson MD - Last Filed: 03/29/20 07:27> Abi is a 24 y/o female s/p on 03/14 that was complicated only for diet-controlled GDM who is here for evaluation for / r/o of severe atypical preeclampsia. Reports feeling well at the bedside this morning. One episode of REDMAN (mild) last night that was associated with a right-sided facial numbness, which has since resolved s/p tylenol x1. After she got up from lying in bed for a while, did not experience transient "dizzy" episodes that resolved with sitting down -- not feeling dizziness / lightheaded this morning at the bedside. Baseline chest pressure described yesterday has resolved. No shortness of breath. RUQ pain is not present this AM and was not present overnight. Mg discontinued in the early afternoon yesterday. BPs have been stable in the 110s/80s throughout yesterday and into early this morning. Review of Systems As per HPI Physical Exam <Raul Watson MD - Last Filed: 03/29/20 07:27> General: Alert, oriented. No acute distress. Cardiac: Regular rate and rhythm, no murmurs/rubs/gallops. Respiratory: Clear to auscultation bilaterally a/p, no wheezes/rales/rhonchi. No increased work of breathing. Symmetrical chest rise. No respiratory distress. Abdomen: Soft, nontender, nondistended. No RUQ pain. Neurologic: Reflexes in the UE/LEs are 1+ b/l (Biceps, patellar, achilles). No clonus. Lower Extremities: No lower extremity edema or swelling. No deep calf pain. Jaycee's negative bilaterally. Results & Data <Raul Watson MD - Last Filed: 03/29/20 07:27> Vital Signs (Past 12 Hours) Vital Signs Temp Pulse Resp BP Pulse Ox 03/29/20 04:24 36.8 C 84 18 105/73 96 03/29/20 00:05 36.7 C 75 16 113/80 97 03/28/20 19:30 37 C 86 18 122/86 98 <Aquiles Soto MD - Last Filed: 03/29/20 07:37> Co-Signing Physician Notes Patient seen and evaluated and agree with the above findings and plan. Stable for discharge. Patient has been normotensive since stopping Mg. Antihypertensive meds were discontinue do to being hypotensive. Patient asymptomatic today. PIH precautions discussed. Recommended follow up visit next week. Resident Activity Tracking <Raul Watson MD - Last Filed: 03/29/20 07:27> Resident Involvement: Resident Care Provided Care Provided: Adult Hospital Medicine
[2020-03-29] MEDS: ACETAMINOPHEN 325 MG TAB PO PRN (09:43)
--- NOTE | 2020-04-12 13:19 | Discharge Summary (DS) ---
HOSPITAL COURSE: The patient was admitted for preeclampsia with severe features; see HPI. The patient was maintained on magnesium for 24-hour course. She had stable labs and blood pressures throughout her hospital stay. At times she was noted to be hypotensive and her propranolol was discontinued as a result. The patient was admitted with a persistent headache, which did improve but not resolved during her hospital stay. The patient was doing well and stable for discharge on hospital day #2 and was discharged home in stable condition with both written and verbal discharge instructions. Please see discharge day progress note and H&P for further details.
== END 2020-03-29 09:53 | disposition home or self-care (01) | DRG 776 ==
LOC: OPB 16:01 → 4S1 16:02 → 4S2 03-28 18:17